=== PATIENT | male | born 1985 | race Caucasian/White ===

== ENCOUNTER 2018-01-07 07:58 | Emergency (ER) | payer OTHER ==
[2018-01-07 08:02] VITALS: BP 130/79; RESP 20; TEMP 98.4
[2018-01-07] MEDS ORDERED: predniSONE 20 MG TAB PO STA (08:15)
[2018-01-07] MEDS ORDERED: ALBUTEROL NEBULIZED 2.5 MG/3 ML INHALATION STA (08:15)
--- NOTE | 2018-01-07 08:23 | ED ---
General Adult HPI - General Chief complaint: ENT Stated complaint: Sore throat Time Seen by Provider: 01/07/18 08:06 Source: patient, RN notes reviewed Mode of arrival: ambulatory Limitations: no limitations - History of Present Illness Initial comments: This is a 32-year-old male present emergency from chief complaint of swelling of his uvula and a cough. Patient states she's been suffering with cough last 3 days. Patient states she is an occasional cigar smoker otherwise does not smoke cigarettes. Patient denies any fever or chills states that he had some troubles ongoing breathing swelling of the swelling. Patient states that has improved since coming emergency from. Patient reports no headache no dizziness denies chest pain, nausea vomiting diarrhea constipation. - Related Data Home Medications Medication Instructions Recorded Confirmed HYDROcodone/APAP 10-325MG [[place] 1 tab PO Q6H PRN 11/25/14 08/02/16 10] Omeprazole [PriLOSEC] 20 mg PO DAILY PRN 12/29/15 08/02/16 Sertraline HCl [Sertraline HCl] 50 mg PO DAILY 12/29/15 08/02/16 Previous Rx's Medication Instructions Recorded amLODIPine [Norvasc] 5 mg PO DAILY #30 tab 02/24/16 Sulfamethox-Tmp 800-160Mg [Bactrim 2 each PO Q12HR #28 tab 08/02/16 Ds] Albuterol Sulfate [Proair Hfa] 1 - 2 puff INHALATION Q4HR PRN #1 01/07/18 inhaler Azithromycin [Zithromax Z-pack] 0 mg PO DIRECTED #1 pack 01/07/18 predniSONE 50 mg PO DAILY #4 tab 01/07/18 Allergies Allergy/AdvReac Type Severity Reaction Status Date / Time amoxicillin Allergy Unknown Verified 01/07/18 08:02 Childhood Review of Systems ROS Statement: Those systems with pertinent positive or pertinent negative responses have been documented in the HPI. ROS Other: All systems not noted in ROS Statement are negative. Past Medical History Past Medical History: Hypertension Additional Past Medical History / Comment(s): Irregular Heart beat History of Any Multi-Drug Resistant Organisms: None Reported Past Surgical History: Orthopedic Surgery Additional Past Surgical History / Comment(s): knee x4 Past Anesthesia/Blood Transfusion Reactions: No Reported Reaction Past Psychological History: Anxiety Smoking Status: Current some day smoker Past Alcohol Use History: Daily Past Drug Use History: Marijuana - Past Family History Mother Family Medical History: No Reported History General Exam Limitations: no limitations General appearance: alert, in no apparent distress Head exam: Present: atraumatic, normocephalic, normal inspection Eye exam: Present: normal appearance, PERRL, EOMI. Absent: scleral icterus, conjunctival injection, periorbital swelling ENT exam: Present: mucous membranes moist, TM's normal bilaterally, normal external ear exam. Absent: normal oropharynx (Swelling of his uvula is noted, mild erythema) Neck exam: Present: normal inspection, full ROM. Absent: tenderness, meningismus, lymphadenopathy Respiratory exam: Present: wheezes. Absent: normal lung sounds bilaterally, respiratory distress, rales, rhonchi, stridor Cardiovascular Exam: Present: regular rate, normal rhythm, normal heart sounds. Absent: systolic murmur, diastolic murmur, rubs, gallop, clicks Course Vital Signs 01/07/18 01/07/18 01/07/18 08:00 08:35 08:44 Temperature 98.4 F Pulse Rate 90 100 92 Respiratory 20 Rate Blood Pressure 130/79 O2 Sat by Pulse 98 Oximetry Medical Decision Making - Medical Decision Making This a 32-year-old male presents emergency Department with chief complaint swelling of his uvula. Patient has uvulitis. Patient will be started on antibiotics, steroids. Patient also had some bronchospasms chest x-ray was clear patient will be given pro-air inhaler. Return parameters were discussed. Disposition Clinical Impression: Uvulitis, Acute bronchospasm Disposition: HOME SELF-CARE Condition: Stable Instructions: Uvulitis (ED) Additional Instructions: Please return to the Emergency Department if symptoms worsen or any other concerns. Prescriptions: Albuterol Sulfate [Proair Hfa] 1 - 2 puff INHALATION Q4HR PRN #1 inhaler PRN Reason: difficulty in breathing Azithromycin [Zithromax Z-pack] 0 mg PO DIRECTED #1 pack predniSONE 50 mg PO DAILY #4 tab Is patient prescribed a controlled substance at d/c from ED?: No Referrals: Twila Orourke III, MD [Primary Care Provider] - 1-2 days Time of Disposition: 08:47
--- NOTE | 2018-01-07 08:35 | XR ---
EXAMINATION TYPE: XR chest 2V DATE OF EXAM: 01/07/2018 COMPARISON: Chest x-ray February 23, 2016 HISTORY: Chest pain today. TECHNIQUE: Frontal and lateral views of the chest are obtained. FINDINGS: There is no focal air space opacity, pleural effusion, or pneumothorax seen. The cardiac silhouette size is within normal limits. The osseous structures are intact. IMPRESSION: No acute process identified currently. No significant change from prior.
[2018-01-07 08:44] VITALS: PULSE 92
== END 2018-01-07 08:40 | disposition home or self-care (01) ==
LOC: EC 07:58
DX: J98.01 Acute bronchospasm (principal); K12.2 Cellulitis and abscess of mouth; F41.9 Anxiety disorder, unspecified; F17.210 Nicotine dependence, cigarettes, uncomplicated; Z79.899 Other long term (current) drug therapy; Z88.0 Allergy status to penicillin
CPT/HCPCS: 94640; 71046; 99283; J7512

== ENCOUNTER 2018-03-31 07:07 | Emergency (ER) | payer OTHER ==
[2018-03-31] MEDS ORDERED: SODIUM CHLORIDE 0.9% 500 ML IV STA (07:33)
[2018-03-31] MEDS ORDERED: MORPHINE SULFATE 2 MG/ML SYRINGE IVP STA (07:34)
--- NOTE | 2018-03-31 07:46 | ED ---
General Adult HPI - General Chief complaint: Neck Pain/Injury Stated complaint: Neck Pain Time Seen by Provider: 03/31/18 07:23 Source: patient, RN notes reviewed Mode of arrival: ambulatory Limitations: no limitations - History of Present Illness Initial comments: Patient is a pleasant 32-year-old male presenting to the emergency department with neck pain and throat discomfort. Patient states neck pain started 3 days ago and has progressively worsened. Patient states neck discomfort is much worse today. 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 No history of chronic neck problems. Neck discomfort increases movement [id number] and up and down. Patient denies any fevers despite being asked multiple times. Patient has noticed a couple of small bumps in the left posterior neck. These are nonpainful. Patient noticed this morning that his uvula felt swollen. Patient did have similar symptoms approximately 3 months ago when he was seen in the emergency department and treated with antibiotics and steroids which resolved his symptoms. - Related Data Home Medications Medication Instructions Recorded Confirmed HYDROcodone/APAP 10-325MG [[place] 1 tab PO Q6H PRN 11/25/14 08/02/16 10] Omeprazole [PriLOSEC] 20 mg PO DAILY PRN 12/29/15 08/02/16 Sertraline HCl 50 mg PO DAILY 12/29/15 08/02/16 Previous Rx's Medication Instructions Recorded amLODIPine [Norvasc] 5 mg PO DAILY #30 tab 02/24/16 Sulfamethox-Tmp 800-160Mg [Bactrim 2 each PO Q12HR #28 tab 08/02/16 Ds] Albuterol Sulfate [Proair Hfa] 1 - 2 puff INHALATION Q4HR PRN #1 01/07/18 inhaler Azithromycin [Zithromax Z-pack] 0 mg PO DIRECTED #1 pack 01/07/18 predniSONE 50 mg PO DAILY #4 tab 01/07/18 Azithromycin [Zithromax Z-pack] 250 mg PO DIRECTED #6 tab 03/31/18 Cyclobenzaprine [Flexeril] 10 mg PO TID PRN #12 tablet 03/31/18 Ibuprofen [Motrin] 600 mg PO Q6HR PRN #20 tab 03/31/18 predniSONE 20 mg PO BID #10 tab 03/31/18 Allergies Allergy/AdvReac Type Severity Reaction Status Date / Time amoxicillin Allergy Unknown Verified 03/31/18 07:15 Childhood Review of Systems ROS Statement: Those systems with pertinent positive or pertinent negative responses have been documented in the HPI. ROS Other: All systems not noted in ROS Statement are negative. Constitutional: Denies: fever, chills Eyes: Denies: eye pain ENT: Reports: throat pain. Denies: ear pain Respiratory: Denies: cough Cardiovascular: Denies: chest pain Endocrine: Denies: fatigue Gastrointestinal: Denies: abdominal pain Genitourinary: Denies: dysuria Musculoskeletal: Denies: back pain Skin: Denies: rash Neurological: Denies: weakness Past Medical History Past Medical History: Hypertension Additional Past Medical History / Comment(s): Irregular Heart beat History of Any Multi-Drug Resistant Organisms: None Reported Past Surgical History: Orthopedic Surgery Additional Past Surgical History / Comment(s): knee x4 Past Anesthesia/Blood Transfusion Reactions: No Reported Reaction Past Psychological History: Anxiety Smoking Status: Current some day smoker Past Alcohol Use History: Daily Past Drug Use History: None Reported - Past Family History Mother Family Medical History: No Reported History General Exam Limitations: no limitations General appearance: alert, in no apparent distress Head exam: Present: atraumatic Eye exam: Present: normal appearance, PERRL ENT exam: Present: other (Swollen uvula with mild erythema) Neck exam: Present: lymphadenopathy (Patient has 2 small left posterior lymph nodes.). Absent: tenderness, full ROM (Pain with range of motion with flexion and extension and turning.) Respiratory exam: Present: normal lung sounds bilaterally Cardiovascular Exam: Present: regular rate, normal rhythm GI/Abdominal exam: Present: soft. Absent: tenderness Extremities exam: Present: normal inspection Neurological exam: Present: alert, CN II-XII intact. Absent: motor sensory deficit Expanded Sensory exam: Upper Extremity Light Touch: Normal Motor strength exam: RUE: 5, LUE: 5 Psychiatric exam: Present: normal affect, normal mood Skin exam: Present: normal color. Absent: rash Course Vital Signs 03/31/18 07:12 Temperature 98.2 F Pulse Rate 80 Respiratory 18 Rate Blood Pressure 121/76 O2 Sat by Pulse 98 Oximetry Medical Decision Making - Medical Decision Making Patient reevaluated and improved following pain medication. Patient is felt to have low risk of meningitis. No fever, nontoxic. No elevation white blood cell count. Patient is made aware of this and feelings that he is low risk. Patient is in agreement. Patient is informed of CT results. Patient will be covered with antibiotics and steroids for uvulitis. Patient is advised for ENT for follow-up regarding this as well as CT results. Patient will be prescribed Motrin and Flexeril for neck discomfort. Neck discomfort is felt to likely be musculoskeletal and possibly related to his work. - Lab Data Result diagrams: 03/31/18 07:58 03/31/18 07:58 Lab Results 03/31/18 03/31/18 03/31/18 Range/Units 07:58 07:58 07:58 WBC 4.3 (3.8-10.6) k/uL RBC 5.12 (4.30-5.90) m/uL Hgb 15.3 (13.0-17.5) gm/dL Hct 46.6 (39.0-53.0) % MCV 91.1 (80.0-100.0) fL MCH 29.9 (25.0-35.0) pg MCHC 32.8 (31.0-37.0) g/dL RDW 13.4 (11.5-15.5) % Plt Count 205 (150-450) k/uL Neutrophils % 56 % Lymphocytes % 32 % Monocytes % 6 % Eosinophils % 3 % Basophils % 1 % Neutrophils # 2.4 (1.3-7.7) k/uL Lymphocytes # 1.4 (1.0-4.8) k/uL Monocytes # 0.3 (0-1.0) k/uL Eosinophils # 0.1 (0-0.7) k/uL Basophils # 0.0 (0-0.2) k/uL PT 10.1 (9.0-12.0) sec INR 1.0 (<1.2) APTT 26.5 (22.0-30.0) sec Sodium 142 (137-145) mmol/L Potassium 4.6 (3.5-5.1) mmol/L Chloride 108 H (98-107) mmol/L Carbon Dioxide 24 (22-30) mmol/L Anion Gap 10 mmol/L BUN 12 (9-20) mg/dL Creatinine 0.74 (0.66-1.25) mg/dL Est GFR (CKD-EPI)AfAm >90 (>60 ml/min/1.73 sqM) Est GFR (CKD-EPI)NonAf >90 (>60 ml/min/1.73 sqM) Glucose 94 (74-99) mg/dL Calcium 9.7 (8.4-10.2) mg/dL Total Bilirubin 0.5 (0.2-1.3) mg/dL AST 23 (17-59) U/L ALT 31 (21-72) U/L Alkaline Phosphatase 43 (38-126) U/L Total Protein 7.0 (6.3-8.2) g/dL Albumin 4.4 (3.5-5.0) g/dL Group A Strep Rapid (Negative) 03/31/18 Range/Units 07:58 WBC (3.8-10.6) k/uL RBC (4.30-5.90) m/uL Hgb (13.0-17.5) gm/dL Hct (39.0-53.0) % MCV (80.0-100.0) fL MCH (25.0-35.0) pg MCHC (31.0-37.0) g/dL RDW (11.5-15.5) % Plt Count (150-450) k/uL Neutrophils % % Lymphocytes % % Monocytes % % Eosinophils % % Basophils % % Neutrophils # (1.3-7.7) k/uL Lymphocytes # (1.0-4.8) k/uL Monocytes # (0-1.0) k/uL Eosinophils # (0-0.7) k/uL Basophils # (0-0.2) k/uL PT (9.0-12.0) sec INR (<1.2) APTT (22.0-30.0) sec Sodium (137-145) mmol/L Potassium (3.5-5.1) mmol/L Chloride (98-107) mmol/L Carbon Dioxide (22-30) mmol/L Anion Gap mmol/L BUN (9-20) mg/dL Creatinine (0.66-1.25) mg/dL Est GFR (CKD-EPI)AfAm (>60 ml/min/1.73 sqM) Est GFR (CKD-EPI)NonAf (>60 ml/min/1.73 sqM) Glucose (74-99) mg/dL Calcium (8.4-10.2) mg/dL Total Bilirubin (0.2-1.3) mg/dL AST (17-59) U/L ALT (21-72) U/L Alkaline Phosphatase (38-126) U/L Total Protein (6.3-8.2) g/dL Albumin (3.5-5.0) g/dL Group A Strep Rapid Negative (Negative) - Radiology Data Radiology results: report reviewed (Computed tomography scan of the neck shows some effacement of the piriform sinus.) Disposition Clinical Impression: Uvulitis, Neck pain Disposition: HOME SELF-CARE Condition: Stable Instructions: Cervical Strain (ED), Neck Pain (ED), Uvulitis (ED) Additional Instructions: Please follow-up with primary care physician and ENT in the next day or 2 for recheck. Please have both physicians review CT results. Return for fevers, increased illness, increased neck pain, difficulty breathing, difficulty swallowing, worsening symptoms or any other concern. Prescriptions: Azithromycin [Zithromax Z-pack] 250 mg PO DIRECTED #6 tab Cyclobenzaprine [Flexeril] 10 mg PO TID PRN #12 tablet PRN Reason: Pain Ibuprofen [Motrin] 600 mg PO Q6HR PRN #20 tab PRN Reason: Pain predniSONE 20 mg PO BID #10 tab Is patient prescribed a controlled substance at d/c from ED?: No Referrals: Twila Orourke III, MD [Primary Care Provider] - 1-2 days Lauro Guthrie MD [STAFF PHYSICIAN] - 1-2 days Time of Disposition: 09:29
[2018-03-31 08:25] LABS: Basophils % (A) 1 %; Eosinophils # (A) 0.1 k/uL (0-0.7); Eosinophils % (A) 3 %; HCT 46.6 % (39.0-53.0); HGB 15.3 gm/dL (13.0-17.5); Lymphocytes # (A) 1.4 k/uL (1.0-4.8); Lymphocytes % (A) 32 %; MCH 29.9 pg (25.0-35.0); MCHC 32.8 g/dL (31.0-37.0); MCV 91.1 fL (80.0-100.0); Mean Platelet Volume 7.8; Monocytes # (A) 0.3 k/uL (0-1.0); Monocytes % (A) 6 %; Neutrophils # (A) 2.4 k/uL (1.3-7.7); Neutrophils % (A) 56 %; Platelet Count 205 k/uL (150-450); RBC 5.12 m/uL (4.30-5.90); RDW 13.4 % (11.5-15.5); WBC 4.3 k/uL (3.8-10.6)
[2018-03-31 08:38] LABS: Partial Thromboplastin Time 26.5 sec (22.0-30.0); Prothrombin Time 10.1 sec (9.0-12.0)
[2018-03-31 08:44] LABS: ALT 31 U/L (21-72); AST 23 U/L (17-59); Albumin 4.4 g/dL (3.5-5.0); Alkaline Phosphatase 43 U/L (38-126); Anion Gap 10 mmol/L; Blood Urea Nitrogen 12 mg/dL (9-20); Calcium 9.7 mg/dL (8.4-10.2); Carbon Dioxide 24 mmol/L (22-30); Chloride 108 mmol/L (98-107); Glucose 94 mg/dL (74-99); Potassium 4.6 mmol/L (3.5-5.1); Sodium 142 mmol/L (137-145); Total Bilirubin 0.5 mg/dL (0.2-1.3)
--- NOTE | 2018-03-31 08:59 | CT ---
EXAMINATION TYPE: CT soft tissue neck w con DATE OF EXAM: 03/31/2018 8:30 AM COMPARISON: None. HISTORY: neck pain CT DLP: 416.3 mGycm Automated exposure control for dose reduction was used. CONTRAST: CT scan of the neck is performed following with IV Contrast, patient injected with 100mL mL of Isovue 300. Axial images are obtained, coronal and sagittal reformatted images are reviewed. FINDINGS: There are emphysematous changes within the lungs. Visualized intracranial structures are unremarkable. Major salivary glands are normal. The parapharyngeal, oropharyngeal and laryngeal soft tissues appear normal. There is some effacement of the right piriform sinus. The epiglottis is normal. The thyroid gland enhances homogeneously. There is some shotty submental and posterior reticular adenopathy. No pathologically enlarged lymph n odes are seen. Vertebral body height and alignment are maintained. Atlantoaxial relationships are normal. There is n o significant degenerative change. No definite protrusion is seen. No bony destructive lesion is seen. IMPRESSION: 1. EFFACEMENT OF THE RIGHT PIRIFORM SINUS. DIRECT VISUALIZATION WOULD BE SUGGESTED. 2. EMPHYSEMATOUS CHANGE.
[2018-03-31 09:41] VITALS: BP 110/68; PULSE 51; RESP 16; TEMP 98.1
== END 2018-03-31 09:49 | disposition home or self-care (01) ==
LOC: EC 07:07
DX: K12.2 Cellulitis and abscess of mouth (principal); M54.2 Cervicalgia; F41.9 Anxiety disorder, unspecified; F17.200 Nicotine dependence, unspecified, uncomplicated; Z79.899 Other long term (current) drug therapy; Z88.0 Allergy status to penicillin
CPT/HCPCS: 99284; 96374; 36415; 80053; 85025; 85610; 85730; 87081; 87430; 70491; J2270

== ENCOUNTER 2018-06-28 12:11 | Emergency (ER) | payer OTHER ==
[2018-06-28 12:15] VITALS: BP 143/89; PULSE 92; RESP 18; TEMP 98
--- NOTE | 2018-06-28 12:39 | ED ---
Abdominal Pain HPI - General Chief Complaint: Abdominal Pain Stated Complaint: ABDOMINAL PAIN Time Seen by Provider: 06/28/18 12:24 Source: patient, RN notes reviewed, old records reviewed Mode of arrival: ambulatory Limitations: no limitations - History of Present Illness Initial Comments: This is a 32-year-old male the ER for evaluation. He presents today for evaluation of mild abdominal pain and dysuria, frequent of urination, foam in his urine. MD Complaint: abdominal pain -: days(s) Location: suprapubic Radiation: suprapubic Severity: mild Severity scale (1-10): 3 Quality: aching Consistency: constant Improves With: nothing Worsens With: nothing Associated Symptoms: denies other symptoms - Related Data Home Medications Medication Instructions Recorded Confirmed HYDROcodone/APAP 10-325MG [[place] 1 tab PO Q6H PRN 11/25/14 08/02/16 10] Omeprazole [PriLOSEC] 20 mg PO DAILY PRN 12/29/15 08/02/16 Sertraline HCl 50 mg PO DAILY 12/29/15 08/02/16 Previous Rx's Medication Instructions Recorded amLODIPine [Norvasc] 5 mg PO DAILY #30 tab 02/24/16 Sulfamethox-Tmp 800-160Mg [Bactrim 2 each PO Q12HR #28 tab 08/02/16 Ds] Albuterol Sulfate [Proair Hfa] 1 - 2 puff INHALATION Q4HR PRN #1 01/07/18 inhaler Azithromycin [Zithromax Z-pack] 0 mg PO DIRECTED #1 pack 01/07/18 predniSONE 50 mg PO DAILY #4 tab 01/07/18 Azithromycin [Zithromax Z-pack] 250 mg PO DIRECTED #6 tab 03/31/18 Cyclobenzaprine [Flexeril] 10 mg PO TID PRN #12 tablet 03/31/18 Ibuprofen [Motrin] 600 mg PO Q6HR PRN #20 tab 03/31/18 predniSONE 20 mg PO BID #10 tab 03/31/18 Allergies Allergy/AdvReac Type Severity Reaction Status Date / Time amoxicillin Allergy Unknown Verified 06/28/18 13:34 Childhood Review of Systems ROS Statement: Those systems with pertinent positive or pertinent negative responses have been documented in the HPI. ROS Other: All systems not noted in ROS Statement are negative. Past Medical History Past Medical History: Hypertension Additional Past Medical History / Comment(s): Irregular Heart beat History of Any Multi-Drug Resistant Organisms: None Reported Past Surgical History: Orthopedic Surgery Additional Past Surgical History / Comment(s): knee x4 Past Anesthesia/Blood Transfusion Reactions: No Reported Reaction Past Psychological History: Anxiety Smoking Status: Current some day smoker Past Alcohol Use History: Daily Past Drug Use History: None Reported - Past Family History Mother Family Medical History: No Reported History General Exam Limitations: no limitations General appearance: alert, in no apparent distress Head exam: Present: atraumatic, normocephalic, normal inspection Eye exam: Present: normal appearance, PERRL, EOMI. Absent: scleral icterus, conjunctival injection, periorbital swelling ENT exam: Present: normal exam, mucous membranes moist Neck exam: Present: normal inspection. Absent: tenderness, meningismus, lymphadenopathy Respiratory exam: Present: normal lung sounds bilaterally. Absent: respiratory distress, wheezes, rales, rhonchi, stridor Cardiovascular Exam: Present: regular rate, normal rhythm, normal heart sounds. Absent: systolic murmur, diastolic murmur, rubs, gallop, clicks GI/Abdominal exam: Present: soft, normal bowel sounds. Absent: distended, tenderness, guarding, rebound, rigid Extremities exam: Present: normal inspection, full ROM, normal capillary refill. Absent: tenderness, pedal edema, joint swelling, calf tenderness Back exam: Present: normal inspection Neurological exam: Present: alert, oriented X3, CN II-XII intact Psychiatric exam: Present: normal affect, normal mood Skin exam: Present: warm, dry, intact, normal color. Absent: rash Course Vital Signs 06/28/18 12:11 Temperature 98 F Pulse Rate 92 Respiratory 18 Rate Blood Pressure 143/89 O2 Sat by Pulse 100 Oximetry - Reevaluation(s) Reevaluation #1: 06/28/18 13:39 Medical record is reviewed Medical Decision Making - Medical Decision Making 32 male the ER for evasive dysuria, positive urethritis, will place on antibiotics and discharged home - Lab Data Lab Results 06/28/18 Range/Units 12:30 Urine Color Yellow Urine Appearance Clear (Clear) Urine pH 6.5 (5.0-8.0) Ur Specific [place] 1.013 (1.001-1.035) Urine Protein 3+ H (Negative) Urine Glucose (UA) Negative (Negative) Urine Ketones Negative (Negative) Urine Blood Trace H (Negative) Urine Nitrite Negative (Negative) Urine Bilirubin Negative (Negative) Urine Urobilinogen <2.0 (<2.0) mg/dL Ur Leukocyte Esterase Negative (Negative) Urine RBC 1 (0-5) /hpf Urine WBC <1 (0-5) /hpf Granular Casts 6 (0) /lpf Urine Mucus Rare H (None) /hpf Disposition Clinical Impression: Urethritis Disposition: HOME SELF-CARE Condition: Good Instructions: Nonspecific Urethritis in Men (ED) Is patient prescribed a controlled substance at d/c from ED?: No Referrals: Twila Orourke III, MD [Primary Care Provider] - 1-2 days
[2018-06-28 13:09] LABS: Appearance,Urine Clear (Clear); Bilirubin,Urine Negative (Negative); Blood,Urine Trace (Negative); Color,Urine Yellow; Glucose,Urine (UA) Negative (Negative); Granular Casts,Urine 6 /lpf (0); Ketones,Urine Negative (Negative); Leukocyte Esterase,Urine Negative (Negative); Mucus,Urine Rare /hpf; Nitrite,Urine Negative (Negative); PH, Urine 6.5 (5.0-8.0); Protein,Urine 3+ (Negative); RBC,Urine 1 /hpf (0-5); Specific Gravity,Urine 1.013 (1.001-1.035); Urobilinogen,Urine <2.0 mg/dL (<2.0); WBC,Urine <1 /hpf (0-5)
[2018-06-28] MEDS ORDERED: AZITHROMYCIN 500 MG TAB PO STA (13:40)
[2018-06-28] MEDS ORDERED: cefTRIAXone 250 MG VIAL IM STA (13:40)
== END 2018-06-28 14:17 | disposition home or self-care (01) ==
LOC: EC 12:11
DX: N34.2 Other urethritis (principal); F41.9 Anxiety disorder, unspecified; F17.200 Nicotine dependence, unspecified, uncomplicated; Z98.890 Other specified postprocedural states; Z79.899 Other long term (current) drug therapy; Z88.0 Allergy status to penicillin
CPT/HCPCS: 81001; 87491; 87591; 87086; 99284; 96372; J0696

== ENCOUNTER 2018-06-28 17:14 | Emergency (ER) | payer OTHER ==
[2018-06-28 17:18] VITALS: TEMP 98.1
[2018-06-28] MEDS ORDERED: SODIUM CHLORIDE 0.9% 1,000 ML IV STA ×2 (17:45)
[2018-06-28] MEDS ORDERED: PANTOPRAZOLE 40 MG/10 ML VIAL IVP STA (17:45)
[2018-06-28] MEDS ORDERED: ONDANSETRON 4 MG/2 ML VIAL IVP STA (17:45)
[2018-06-28] MEDS ORDERED: KETOROLAC 30 MG/ML 1 ML VIAL IVP STA (17:47)
--- NOTE | 2018-06-28 17:47 | ED ---
GI Bleed HPI - General Chief complaint: GI Bleed Stated complaint: vomiting blood Time Seen by Provider: 06/28/18 17:32 Source: patient, RN notes reviewed, old records reviewed Mode of arrival: ambulatory Limitations: no limitations - History of Present Illness Initial comments: 32-year-old male presents emergency department today with chief complaint of foam urine. Patient has been having this for the past 2 weeks. Complains of pain with urination and pain in his bladder. He reports he is a heavy drinker. He was evaluated earlier today diagnosed with urinary tract infection and treated for STDs. Patient relates he does not have any STDs and he reports he is a monogamous relationship with his . Patient states that he's had no fevers or chills. He did have some vomiting episodes after was initially discharged today reports that he was vomited up blood. - Related Data Home Medications Medication Instructions Recorded Confirmed HYDROcodone/APAP 10-325MG [[place] 1 tab PO Q6H PRN 11/25/14 06/28/18 10] Omeprazole [PriLOSEC] 20 mg PO DAILY PRN 06/28/18 06/28/18 Previous Rx's Medication Instructions Recorded amLODIPine [Norvasc] 5 mg PO DAILY #30 tab 02/24/16 Omeprazole [PriLOSEC] 40 mg PO DAILY #20 capsule. 06/28/18 Ondansetron Odt [Zofran Odt] 4 mg PO Q8HR PRN #12 tab 06/28/18 chlordiazePOXIDE HCl [Librium] 25 mg PO DIRECTED 3 Days #10 06/28/18 capsule Allergies Allergy/AdvReac Type Severity Reaction Status Date / Time amoxicillin Allergy Unknown Verified 06/28/18 17:31 Childhood Review of Systems ROS Statement: Those systems with pertinent positive or pertinent negative responses have been documented in the HPI. ROS Other: All systems not noted in ROS Statement are negative. Past Medical History Past Medical History: Hypertension Additional Past Medical History / Comment(s): Irregular Heart beat History of Any Multi-Drug Resistant Organisms: None Reported Past Surgical History: Orthopedic Surgery Additional Past Surgical History / Comment(s): knee x4 Past Anesthesia/Blood Transfusion Reactions: No Reported Reaction Past Psychological History: Anxiety Smoking Status: Current some day smoker Past Alcohol Use History: Daily Past Drug Use History: None Reported - Past Family History Mother Family Medical History: No Reported History General Exam - General Exam Comments Initial Comments: 32-year-old male. Alert and oriented. Patient appears in no significant distress. Limitations: no limitations General appearance: alert, in no apparent distress Head exam: Present: atraumatic Eye exam: Present: normal appearance, PERRL, EOMI. Absent: scleral icterus, conjunctival injection, periorbital swelling ENT exam: Present: normal exam Neck exam: Present: normal inspection Respiratory exam: Present: normal lung sounds bilaterally. Absent: respiratory distress, wheezes, rales, rhonchi, stridor Cardiovascular Exam: Present: regular rate, normal rhythm, normal heart sounds. Absent: systolic murmur, diastolic murmur, rubs, gallop, clicks GI/Abdominal exam: Present: soft, normal bowel sounds. Absent: distended, tenderness, guarding, rebound, rigid Extremities exam: Present: normal inspection, full ROM, normal capillary refill. Absent: tenderness, pedal edema, joint swelling, calf tenderness Back exam: Present: normal inspection. Absent: tenderness Neurological exam: Present: alert, oriented X3, CN II-XII intact Psychiatric exam: Present: normal affect, normal mood Skin exam: Present: warm, dry, intact, normal color. Absent: rash Course Vital Signs 06/28/18 06/28/18 06/28/18 17:15 19:46 20:58 Temperature 98.1 F Pulse Rate 89 90 88 Respiratory 18 16 16 Rate Blood Pressure 146/90 119/90 130/81 O2 Sat by Pulse 100 97 97 Oximetry Medical Decision Making - Medical Decision Making 32-year-old male presents emergency department today with chief complaint of foam urine. Patient has been having this for the past 2 weeks. Complains of pain with urination and pain in his bladder. He reports he is a heavy drinker. He was evaluated earlier today diagnosed with urinary tract infection and treated for STDs. Patient relates he does not have any STDs and he reports he is a monogamous relationship with his . Patient states that he's had no fevers or chills. He did have some vomiting episodes after was initially discharged today reports that he was vomited up blood. Patient was started on IV fluids and labs obtained. He later reports a history of significant ETOH abuse. Patient at this time continues to have protein uria. No signs of infection. Patient labs incluidng kidney function is presevered. He reports he vomitited blood, and reports history of ETOH gastritis. Given protonix. discussed that patient needs to follow [facility] uronology and PCP. discussed return parameters. - Lab Data Result diagrams: 06/28/18 18:15 06/28/18 18:15 Lab Results 06/28/18 06/28/18 06/28/18 Range/Units 18:15 18:15 18:15 WBC 6.8 (3.8-10.6) k/uL RBC 5.40 (4.30-5.90) m/uL Hgb 16.2 (13.0-17.5) gm/dL Hct 47.1 (39.0-53.0) % MCV 87.2 (80.0-100.0) fL MCH 30.1 (25.0-35.0) pg MCHC 34.5 (31.0-37.0) g/dL RDW 13.7 (11.5-15.5) % Plt Count 196 (150-450) k/uL Neutrophils % 82 % Lymphocytes % 11 % Monocytes % 6 % Eosinophils % 0 % Basophils % 0 % Neutrophils # 5.5 (1.3-7.7) k/uL Lymphocytes # 0.8 L (1.0-4.8) k/uL Monocytes # 0.4 (0-1.0) k/uL Eosinophils # 0.0 (0-0.7) k/uL Basophils # 0.0 (0-0.2) k/uL PT 9.8 (9.0-12.0) sec INR 1.0 (<1.2) APTT 25.3 (22.0-30.0) sec Sodium 140 (137-145) mmol/L Potassium 4.2 (3.5-5.1) mmol/L Chloride 97 L (98-107) mmol/L Carbon Dioxide 25 (22-30) mmol/L Anion Gap 18 mmol/L BUN 11 (9-20) mg/dL Creatinine 0.73 (0.66-1.25) mg/dL Est GFR (CKD-EPI)AfAm >90 (>60 ml/min/1.73 sqM) Est GFR (CKD-EPI)NonAf >90 (>60 ml/min/1.73 sqM) Glucose 116 H (74-99) mg/dL Calcium 10.0 (8.4-10.2) mg/dL Total Bilirubin 0.5 (0.2-1.3) mg/dL AST 38 (17-59) U/L ALT 23 (21-72) U/L Alkaline Phosphatase 67 (38-126) U/L Total Protein 8.3 H (6.3-8.2) g/dL Albumin 5.2 H (3.5-5.0) g/dL Amylase 64 (30-110) U/L Lipase 220 (23-300) U/L Urine Color Urine Appearance (Clear) Urine pH (5.0-8.0) Ur Specific [place] (1.001-1.035) Urine Protein (Negative) Urine Glucose (UA) (Negative) Urine Ketones (Negative) Urine Blood (Negative) Urine Nitrite (Negative) Urine Bilirubin (Negative) Urine Urobilinogen (<2.0) mg/dL Ur Leukocyte Esterase (Negative) Urine RBC (0-5) /hpf Urine WBC (0-5) /hpf Hyaline Casts (0-2) /lpf Urine Mucus (None) /hpf 06/28/18 Range/Units 19:10 WBC (3.8-10.6) k/uL RBC (4.30-5.90) m/uL Hgb (13.0-17.5) gm/dL Hct (39.0-53.0) % MCV (80.0-100.0) fL MCH (25.0-35.0) pg MCHC (31.0-37.0) g/dL RDW (11.5-15.5) % Plt Count (150-450) k/uL Neutrophils % % Lymphocytes % % Monocytes % % Eosinophils % % Basophils % % Neutrophils # (1.3-7.7) k/uL Lymphocytes # (1.0-4.8) k/uL Monocytes # (0-1.0) k/uL Eosinophils # (0-0.7) k/uL Basophils # (0-0.2) k/uL PT (9.0-12.0) sec INR (<1.2) APTT (22.0-30.0) sec Sodium (137-145) mmol/L Potassium (3.5-5.1) mmol/L Chloride (98-107) mmol/L Carbon Dioxide (22-30) mmol/L Anion Gap mmol/L BUN (9-20) mg/dL Creatinine (0.66-1.25) mg/dL Est GFR (CKD-EPI)AfAm (>60 ml/min/1.73 sqM) Est GFR (CKD-EPI)NonAf (>60 ml/min/1.73 sqM) Glucose (74-99) mg/dL Calcium (8.4-10.2) mg/dL Total Bilirubin (0.2-1.3) mg/dL AST (17-59) U/L ALT (21-72) U/L Alkaline Phosphatase (38-126) U/L Total Protein (6.3-8.2) g/dL Albumin (3.5-5.0) g/dL Amylase (30-110) U/L Lipase (23-300) U/L Urine Color Yellow Urine Appearance Clear (Clear) Urine pH 6.5 (5.0-8.0) Ur Specific [place]comb 1.008 (1.001-1.035) Urine Protein 3+ H (Negative) Urine Glucose (UA) Negative (Negative) Urine Ketones Negative (Negative) Urine Blood Small H (Negative) Urine Nitrite Negative (Negative) Urine Bilirubin Negative (Negative) Urine Urobilinogen <2.0 (<2.0) mg/dL Ur Leukocyte Esterase Negative (Negative) Urine RBC <1 (0-5) /hpf Urine WBC <1 (0-5) /hpf Hyaline Casts 6 H (0-2) /lpf Urine Mucus Rare H (None) /hpf - Radiology Data Radiology results: report reviewed Negative CT abdomen and pelvis. Disposition Clinical Impression: Proteinuria, Alcohol abuse, Abdominal pain Disposition: HOME SELF-CARE Condition: Good Instructions: Hematuria (ED), Abdominal Pain (ED) Additional Instructions: Patient is to continue the antibiotic is perviously prescribed. If you discontinuing drinking use the Librium taper pack as directed. Follow-up with your primary care physician and urology. Prescriptions: chlordiazePOXIDE HCl [Librium] 25 mg PO DIRECTED 3 Days #10 capsule Omeprazole [PriLOSEC] 40 mg PO DAILY #20 capsule. Ondansetron Odt [Zofran Odt] 4 mg PO Q8HR PRN #12 tab PRN Reason: Pain Is patient prescribed a controlled substance at d/c from ED?: No Referrals: Twila Orourke III, MD [Primary Care Provider] - 1-2 days Harvey Clark MD [STAFF PHYSICIAN] - 1-2 days Time of Disposition: 20:47
[2018-06-28 18:33] LABS: Basophils % (A) 0 %; Eosinophils % (A) 0 %; HCT 47.1 % (39.0-53.0); HGB 16.2 gm/dL (13.0-17.5); Lymphocytes # (A) 0.8 k/uL (1.0-4.8); Lymphocytes % (A) 11 %; MCH 30.1 pg (25.0-35.0); MCHC 34.5 g/dL (31.0-37.0); MCV 87.2 fL (80.0-100.0); Mean Platelet Volume 6.8; Monocytes # (A) 0.4 k/uL (0-1.0); Monocytes % (A) 6 %; Neutrophils # (A) 5.5 k/uL (1.3-7.7); Neutrophils % (A) 82 %; Platelet Count 196 k/uL (150-450); RDW 13.7 % (11.5-15.5); WBC 6.8 k/uL (3.8-10.6)
[2018-06-28 18:36] LABS: Partial Thromboplastin Time 25.3 sec (22.0-30.0); Prothrombin Time 9.8 sec (9.0-12.0)
[2018-06-28 18:56] LABS: ALT 23 U/L (21-72); AST 38 U/L (17-59); Albumin 5.2 g/dL (3.5-5.0); Alkaline Phosphatase 67 U/L (38-126); Amylase 64 U/L (30-110); Anion Gap 18 mmol/L; Blood Urea Nitrogen 11 mg/dL (9-20); Carbon Dioxide 25 mmol/L (22-30); Chloride 97 mmol/L (98-107); Glucose 116 mg/dL (74-99); Lipase 220 U/L (23-300); Potassium 4.2 mmol/L (3.5-5.1); Sodium 140 mmol/L (137-145); Total Bilirubin 0.5 mg/dL (0.2-1.3); Total Protein 8.3 g/dL (6.3-8.2)
[2018-06-28 19:21] LABS: Appearance,Urine Clear (Clear); Bilirubin,Urine Negative (Negative); Blood,Urine Small (Negative); Color,Urine Yellow; Glucose,Urine (UA) Negative (Negative); Hyaline Casts,Urine 6 /lpf (0-2); Ketones,Urine Negative (Negative); Leukocyte Esterase,Urine Negative (Negative); Mucus,Urine Rare /hpf; Nitrite,Urine Negative (Negative); PH, Urine 6.5 (5.0-8.0); Protein,Urine 3+ (Negative); RBC,Urine <1 /hpf (0-5); Specific Gravity,Urine 1.008 (1.001-1.035); Urobilinogen,Urine <2.0 mg/dL (<2.0); WBC,Urine <1 /hpf (0-5)
--- NOTE | 2018-06-28 19:46 | CT ---
EXAMINATION TYPE: CT abdomen pelvis wo con DATE OF EXAM: 06/28/2018 COMPARISON: None HISTORY: vomiting blood, recent broken rib on left side CT DLP: 507 mGycm Automated exposure control for dose reduction was used. TECHNIQUE: Helical acquisition of images was performed from the lung bases through the pelvis. FINDINGS: Lung bases are clear. There is no pleural effusion. Heart size is normal. There is no pericardial eff usion. Stomach has normal size and contour. There is 1 cm rounded density in the posterior stomach that coul d be ingested calcium pill. Spleen appears normal. Liver shows no focal defect. Bile ducts are not di lated. There is no evidence of a pancreatic mass. There is no adrenal mass. Kidneys have normal size and contour. There is no hydronephrosis. There is no definite renal calculus. Ureters are not dilated. There is no retroperitoneal adenopathy. Bladder distends smoothly. There is no free fluid in the pelvis. There is no inguinal hernia. There is no evidence of free air. I see no intestinal wall thickening. There are no dilated loops. Th ere is no mesenteric edema. There are a few pericecal lymph nodes that measure up to 1 cm. Appendix a ppears normal. The bony pelvis is intact. Lumbar vertebra appear intact. There is no lumbar paraspinal mass. IMPRESSION: NEGATIVE CT SCAN OF THE ABDOMEN AND PELVIS. NO EVIDENCE OF TRAUMATIC INJURY.
[2018-06-28 19:47] VITALS: RESP 16
[2018-06-28 21:00] VITALS: BP 130/81; PULSE 88
== END 2018-06-28 21:02 | disposition home or self-care (01) ==
LOC: EC 17:14
DX: F10.10 Alcohol abuse, uncomplicated (principal); R80.9 Proteinuria, unspecified; R10.9 Unspecified abdominal pain; K92.0 Hematemesis; N39.0 Urinary tract infection, site not specified; F17.200 Nicotine dependence, unspecified, uncomplicated; Z88.0 Allergy status to penicillin
CPT/HCPCS: 99285; 96374; 96375 ×2; 96361 ×3; 36415; 80053; 82150; 83690; 85025; 85610; 85730; 81001; 74176; J2405; J1885; C9113

== ENCOUNTER → 2020-02-05 | Outpatient (CLI) | payer OTHER ==
--- NOTE | 2020-02-05 07:45 | US ---
EXAMINATION TYPE: US abdomen complete DATE OF EXAM: 02/05/2020 COMPARISON: CT 06/28/2018 CLINICAL HISTORY: R10.11 Right upper quadrant pain. EXAM MEASUREMENTS: Liver Length: 16.5 cm Gallbladder Wall: 0.2 cm CBD: 0.7 cm Spleen: 14.0 cm Right Kidney: 11.6 x 4.7 x 5.4 cm Left Kidney: 11.0 x 5.6 x 6.4 cm Pancreas: Tail obscured by overlying bowel gas, visualized portions appear wnl Liver: wnl Gallbladder: wnl Evidence for sonographic Ram's sign: No CBD: Enlarged Spleen: Enlarged Right Kidney: No hydronephrosis or masses seen Left Kidney: No hydronephrosis or masses seen Upper IVC: wnl Abd Aorta: wnl The liver is homogenous. The intrahepatic portion of the IVC and proximal abdominal aorta are within normal limits. There is no evidence of cholelithiasis. The visualized portions of the pancreas are homogenous. The spleen is unremarkable. Kidneys are symmetric and free of hydronephrosis. No mary l lesions are seen. IMPRESSION: 1. Splenomegaly. 2. Prominence of the common bile duct of uncertain etiology.
== END | disposition home or self-care (01) ==
LOC: RADUSWWP 07:08
PROVIDERS: ATTEND Family Medicine
DX: R16.1 Splenomegaly, not elsewhere classified (principal)
CPT/HCPCS: 76700

== ENCOUNTER 2022-01-23 19:41 | Observation (INO) | payer BC ==
[2022-01-23 20:02] VITALS: TEMP 98.7
[2022-01-23] MEDS ORDERED: SODIUM CHLORIDE 0.9% 1,000 ML IV STA (20:06)
--- NOTE | 2022-01-23 20:19 | ED ---
General Adult HPI - General Chief complaint: Recheck/Abnormal Lab/Rx Stated complaint: High Blood Pressure, Shaking, Chest tightness Time Seen by Provider: 01/23/22 20:05 Source: patient Mode of arrival: ambulatory Limitations: no limitations - History of Present Illness Initial comments: This is a pleasant 36-year-old male with history of alcoholism. Patient states she has not drank alcohol in 3 years however, he presents to the ER today c omplaining of generalized tremors and "wobbly vision "and a mild headache which resolved. Patient states he was not feeling well for a few days. Patient states he thought he had some mild shakiness. He states everything got worse a few hours ago. Patient states she's been under a great deal stress Lexyradha [place]ot his significant other is . Patient states he had 2 tile family members today which was stressful. Patient has a history of anxiety attacks which was similar but not quite as bad as this one. Patient denies any chest pain but did have some palpitations. No current headache, no fever or chills, no changes in hearing, no sore throat or difficulty with speech, no neck pain, no chest pain or shortness of breath, no abdominal pain, no nausea or vomiting, no changes in urination or bowel movements, no numbness or tingling, no extremity pain, no skin rashes or lesions. Patient complaining of generalized shaking, wobbly vision, and some gait disturbance. - Related Data Home Medications Medication Instructions Recorded Confirmed Arginine [l-Arginine] 500 mg PO DAILY 01/23/22 01/23/22 Ashwagandha Root Extract 500 mg PO DAILY 01/23/22 01/23/22 [Ashwagandha] Dextroamphetamine/Amphetamine 20 mg PO DAILY PRN 01/23/22 01/23/22 [Adderall Xr 20 mg Capsule] Ergocalciferol (Vitamin D2) 1,250 mcg PO TH 01/23/22 01/23/22 [Drisdol (50,000 Iu)] Fenugreek 1 tab PO DAILY 01/23/22 01/23/22 Glucosam/Ja-Msm1/C/[place]/Bosw 1 tab PO DAILY 01/23/22 01/23/22 [Glucosamine-Chondroitin Tablet] ISOtretinoin [Accutane] 20 mg PO HS 01/23/22 01/23/22 L-Tyrosine 1 tab PO DAILY 01/23/22 01/23/22 Mucuna Pruriens 1 tab PO DAILY 01/23/22 01/23/22 Vitamin A 2,400 mcg PO DAILY 01/23/22 01/23/22 Vitamin B Complex 1 cap PO DAILY 01/23/22 01/23/22 Zinc 50 mg PO DAILY 01/23/22 01/23/22 methylPREDNISolone [Medrol Dose See Taper PO DIRECTED 01/23/22 01/23/22 Pack] Previous Rx's Medication Instructions Recorded Potassium Chloride ER [K-Dur 20] 20 meq PO DAILY #5 tab 01/23/22 hydrOXYzine HCL 25 mg PO Q8HR PRN #20 tab 01/23/22 Allergies Allergy/AdvReac Type Severity Reaction Status Date / Time amoxicillin Allergy Unknown Verified 01/23/22 21:11 Childhood Review of Systems ROS Statement: Those systems with pertinent positive or pertinent negative responses have been documented in the HPI. ROS Other: All systems not noted in ROS Statement are negative. Past Medical History Past Medical History: Hypertension Additional Past Medical History / Comment(s): Irregular Heart beat History of Any Multi-Drug Resistant Organisms: None Reported Past Surgical History: Orthopedic Surgery Additional Past Surgical History / Comment(s): knee x4 Past Anesthesia/Blood Transfusion Reactions: No Reported Reaction Past Psychological History: Anxiety Smoking Status: Current every day smoker Past Alcohol Use History: Daily Past Drug Use History: None Reported - Past Family History Mother Family Medical History: No Reported History General Exam - General Exam Comments Initial Comments: Cranial nerves II through XII grossly intact. Patient does have notable nystagmus. Patient also has a generalized tremor which is bilateral. Patient tremor is worse with finger to nose. Seems to be worse with any intention. Does have trouble with Romberg but is able to stand. Limitations: no limitations General appearance: in distress Head exam: Present: atraumatic, normocephalic, normal inspection Eye exam: Present: PERRL, EOMI, nystagmus. Absent: scleral icterus, conjunctival injection, periorbital swelling, periorbital tenderness ENT exam: Present: normal exam, normal oropharynx, mucous membranes dry, mucous membranes moist, normal external ear exam Neck exam: Present: normal inspection, full ROM. Absent: tenderness, meningismus, lymphadenopathy Respiratory exam: Present: normal lung sounds bilaterally. Absent: respiratory distress, wheezes, rales, rhonchi, stridor, chest wall tenderness, accessory muscle use Cardiovascular Exam: Present: regular rate, normal rhythm, normal heart sounds. Absent: systolic murmur, diastolic murmur, rubs, gallop, clicks GI/Abdominal exam: Present: soft, normal bowel sounds. Absent: distended, tenderness, guarding, rebound, rigid Extremities exam: Present: normal inspection, full ROM, normal capillary refill. Absent: tenderness, pedal edema, joint swelling, calf tenderness Back exam: Present: normal inspection Neurological exam: Present: alert, oriented X3, CN II-XII intact Expanded Patient oriented to: Present: person, place, time Speech: Present: fluid speech Cranial nerves: EOM's Intact: Normal, Gag Reflex: Normal, Tongue Deviation: Normal, Nystagmus: Abnormal Right, Facial Sensation: Normal, Facial Palsy with Forehead Movement: Normal, Facial Palsy without Forehead Movement: Normal Cerebellar function: Finger to Nose: Normal (Has notable increased Tremor with this maneuver), Heel to [place]: Normal, Romberg: Normal (Can complete with difficulty) Upper motor neuron: Oscar Neglect: Normal, Pronator Drift: Normal Sensory exam: Upper Extremity Light Touch: Normal, Upper Extremity Pin Prick: Normal, Lower Extremity Light Touch: Normal, Lower Extremity Pin Prick: Normal Motor strength exam: RUE: 5, LUE: 5, RLE: 5, LLE: 5 Eye Response: (4) open spontaneously Motor Response: (6) obeys commands Verbal Response: (5) oriented Jo Ann Total: 15 Psychiatric exam: Present: normal affect, normal mood Skin exam: Present: warm, dry, intact, normal color. Absent: rash Course Vital Signs 01/23/22 01/23/22 01/23/22 19:59 21:02 23:42 Temperature 98.7 F Pulse Rate 78 72 88 Respiratory 18 16 16 Rate Blood Pressure 139/82 136/89 118/88 O2 Sat by Pulse 99 98 98 Oximetry - Reevaluation(s) Reevaluation #1: 01/23/22 21:47 Medical record is reviewed symptoms are somewhat improved. Patient still has what he is describing is wobbly vision Patient is informed of results and questions answered Patient in no distress Reevaluation #2: 01/23/22 23:35 Patient improved greatly after diazepam. Patient was reevaluated prior to discharge is neurologically intact. Alert and oriented 4. Cranial nerves II through XII intact, no focal neurologic deficits. Symptomology improved. - Consultations Consultation #1: Case discussed with Dr. Sinclair from [facility]ist [facility]. He had subsequent admission. We'll consult neurology. Medical Decision Making - Medical Decision Making Note that this patient started taking Accutane 6 days ago for acne. An abundance of [id number] herbal remedies. Patient denies alcohol or drug abuse. The case was discussed in detail with ED attending physician. Presentation, findings, treatment plan discussed in detail. Despite the patient's essentially benign workup. We decided to place the patient under observation for neurological evaluation. Patient's symptoms certainly could be related to the new onset of Accutane treatment. Patient stat es he previously has had some panic attacks. Patient also had a stressful day today as his significant other found out she was . I'm going to all of the patient's medications as he is on many [id number] herbal and holistic substances which could be contributing to the patient's symptomatology. We'll hold Accutane and Adderall as well. This patient was seen and evaluated by the hospitalist physician, Dr. Sinclair. Patient was essentially asymptomatic by the time he saw him. He believes the patient's symptomology is attributable to a panic attack/anxiety. She is comfo rtable with the patient going home. He will add a consult note. Going to have the patient use hydroxyzine when necessary for anxiety. We'll have the patient hold Accutane until he can follow-up with his regular doctor. He is to call the morning for the first available appointment. Patient was told to return to the ER for any signs or symptoms worsen. Told to return immediately if any other problems arise. All questions answered. Treatment plan discussed. Patient in agreement Every effort has been made to ensure accuracy of this dictation. However, due to the limitations of electronic medical records and dictation devices, errors in charting still occur. - Lab Data Result diagrams: 01/23/22 20:20 01/23/22 20:20 Lab Results 01/23/22 01/23/22 01/23/22 Range/Units 20:20 20:20 20:20 WBC 7.6 (3.8-10.6) k/uL RBC 4.23 L (4.30-5.90) m/uL Hgb 13.0 (13.0-17.5) gm/dL Hct 38.5 L (39.0-53.0) % MCV 90.9 (80.0-100.0) fL MCH 30.8 (25.0-35.0) pg MCHC 33.8 (31.0-37.0) g/dL RDW 12.5 (11.5-15.5) % Plt Count 197 (150-450) k/uL MPV 7.9 Neutrophils % 45 % Lymphocytes % 47 % Monocytes % 5 % Eosinophils % 0 % Basophils % 0 % Neutrophils # 3.4 (1.3-7.7) k/uL Lymphocytes # 3.6 (1.0-4.8) k/uL Monocytes # 0.4 (0-1.0) k/uL Eosinophils # 0.0 (0-0.7) k/uL Basophils # 0.0 (0-0.2) k/uL PT 11.0 (9.0-12.0) sec INR 1.0 (<1.2) APTT 30.9 H (22.0-30.0) sec Sodium 140 (137-145) mmol/L Potassium 3.4 L (3.5-5.1) mmol/L Chloride 99 (98-107) mmol/L Carbon Dioxide 29 (22-30) mmol/L Anion Gap 12 mmol/L BUN 14 (9-20) mg/dL Creatinine 0.98 (0.66-1.25) mg/dL Est GFR (CKD-EPI)AfAm >90 (>60 ml/min/1.73 sqM) Est GFR (CKD-EPI)NonAf >90 (>60 ml/min/1.73 sqM) Glucose 96 (74-99) mg/dL Calcium 8.7 (8.4-10.2) mg/dL Phosphorus 4.4 (2.5-4.5) mg/dL Magnesium 1.7 (1.6-2.3) mg/dL Total Bilirubin 0.5 (0.2-1.3) mg/dL AST 20 (17-59) U/L ALT 19 (4-49) U/L Alkaline Phosphatase 53 (38-126) U/L Ammonia (<30) umol/L Troponin I (0.000-0.034) ng/mL Total Protein 7.1 (6.3-8.2) g/dL Albumin 4.9 (3.5-5.0) g/dL Lipase 62 (23-300) U/L TSH 2.660 (0.465-4.680) mIU/L Urine Color Urine Appearance (Clear) Urine pH (5.0-8.0) Ur Specific [place] (1.001-1.035) Urine Protein (Negative) Urine Glucose (UA) (Negative) Urine Ketones (Negative) Urine Blood (Negative) Urine Nitrite (Negative) Urine Bilirubin (Negative) Urine Urobilinogen (<2.0) mg/dL Ur Leukocyte Esterase (Negative) Salicylates <1.0 mg/dL Urine Opiates Screen (NotDetected) Ur Oxycodone Screen (NotDetected) Urine Methadone Screen (NotDetected) Ur Propoxyphene Screen (NotDetected) Acetaminophen <10.0 ug/mL Ur Barbiturates Screen (NotDetected) U Tricyclic Antidepress (NotDetected) Ur Phencyclidine Scrn (NotDetected) Ur Amphetamines Screen (NotDetected) U Methamphetamines Scrn (NotDetected) U Benzodiazepines Scrn (NotDetected) Urine Cocaine Screen (NotDetected) U Marijuana (THC) Screen (NotDetected) Serum Alcohol <10 mg/dL Coronavirus (PCR) (Not Detectd) 01/23/22 01/23/22 01/23/22 Range/Units 20:20 20:20 20:20 WBC (3.8-10.6) k/uL RBC (4.30-5.90) m/uL Hgb (13.0-17.5) gm/dL Hct (39.0-53.0) % MCV (80.0-100.0) fL MCH (25.0-35.0) pg MCHC (31.0-37.0) g/dL RDW (11.5-15.5) % Plt Count (150-450) k/uL MPV Neutrophils % % Lymphocytes % % Monocytes % % Eosinophils % % Basophils % % Neutrophils # (1.3-7.7) k/uL Lymphocytes # (1.0-4.8) k/uL Monocytes # (0-1.0) k/uL Eosinophils # (0-0.7) k/uL Basophils # (0-0.2) k/uL PT (9.0-12.0) sec INR (<1.2) APTT (22.0-30.0) sec Sodium (137-145) mmol/L Potassium (3.5-5.1) mmol/L Chloride (98-107) mmol/L Carbon Dioxide (22-30) mmol/L Anion Gap mmol/L BUN (9-20) mg/dL Creatinine (0.66-1.25) mg/dL Est GFR (CKD-EPI)AfAm (>60 ml/min/1.73 sqM) Est GFR (CKD-EPI)NonAf (>60 ml/min/1.73 sqM) Glucose (74-99) mg/dL Calcium (8.4-10.2) mg/dL Phosphorus (2.5-4.5) mg/dL Magnesium (1.6-2.3) mg/dL Total Bilirubin (0.2-1.3) mg/dL AST (17-59) U/L ALT (4-49) U/L Alkaline Phosphatase (38-126) U/L Ammonia <9 (<30) umol/L Troponin I <0.012 (0.000-0.034) ng/mL Total Protein (6.3-8.2) g/dL Albumin (3.5-5.0) g/dL Lipase (23-300) U/L TSH (0.465-4.680) mIU/L Urine Color Urine Appearance (Clear) Urine pH (5.0-8.0) Ur Specific [place] (1.001-1.035) Urine Protein (Negative) Urine Glucose (UA) (Negative) Urine Ketones (Negative) Urine Blood (Negative) Urine Nitrite (Negative) Urine Bilirubin (Negative) Urine Urobilinogen (<2.0) mg/dL Ur Leukocyte Esterase (Negative) Salicylates mg/dL Urine Opiates Screen (NotDetected) Ur Oxycodone Screen (NotDetected) Urine Methadone Screen (NotDetected) Ur Propoxyphene Screen (NotDetected) Acetaminophen ug/mL Ur Barbiturates Screen (NotDetected) U Tricyclic Antidepress (NotDetected) Ur Phencyclidine Scrn (NotDetected) Ur Amphetamines Screen (NotDetected) U Methamphetamines Scrn (NotDetected) U Benzodiazepines Scrn (NotDetected) Urine Cocaine Screen (NotDetected) U Marijuana (THC) Screen (NotDetected) Serum Alcohol mg/dL Coronavirus (PCR) Not Detected (Not Detectd) 01/23/22 01/23/22 Range/Units 20:50 20:50 WBC (3.8-10.6) k/uL RBC (4.30-5.90) m/uL Hgb (13.0-17.5) gm/dL Hct (39.0-53.0) % MCV (80.0-100.0) fL MCH (25.0-35.0) pg MCHC (31.0-37.0) g/dL RDW (11.5-15.5) % Plt Count (150-450) k/uL MPV Neutrophils % % Lymphocytes % % Monocytes % % Eosinophils % % Basophils % % Neutrophils # (1.3-7.7) k/uL Lymphocytes # (1.0-4.8) k/uL Monocytes # (0-1.0) k/uL Eosinophils # (0-0.7) k/uL Basophils # (0-0.2) k/uL PT (9.0-12.0) sec INR (<1.2) APTT (22.0-30.0) sec Sodium (137-145) mmol/L Potassium (3.5-5.1) mmol/L Chloride (98-107) mmol/L Carbon Dioxide (22-30) mmol/L Anion Gap mmol/L BUN (9-20) mg/dL Creatinine (0.66-1.25) mg/dL Est GFR (CKD-EPI)AfAm (>60 ml/min/1.73 sqM) Est GFR (CKD-EPI)NonAf (>60 ml/min/1.73 sqM) Glucose (74-99) mg/dL Calcium (8.4-10.2) mg/dL Phosphorus (2.5-4.5) mg/dL Magnesium (1.6-2.3) mg/dL Total Bilirubin (0.2-1.3) mg/dL AST (17-59) U/L ALT (4-49) U/L Alkaline Phosphatase (38-126) U/L Ammonia (<30) umol/L Troponin I (0.000-0.034) ng/mL Total Protein (6.3-8.2) g/dL Albumin (3.5-5.0) g/dL Lipase (23-300) U/L TSH (0.465-4.680) mIU/L Urine Color Light Yellow Urine Appearance Clear (Clear) Urine pH 6.5 (5.0-8.0) Ur Specific [place] 1.004 (1.001-1.035) Urine Protein Negative (Negative) Urine Glucose (UA) Negative (Negative) Urine Ketones Negative (Negative) Urine Blood Negative (Negative) Urine Nitrite Negative (Negative) Urine Bilirubin Negative (Negative) Urine Urobilinogen <2.0 (<2.0) mg/dL Ur Leukocyte Esterase Negative (Negative) Salicylates mg/dL Urine Opiates Screen Not Detected (NotDetected) Ur Oxycodone Screen Not Detected (NotDetected) Urine Methadone Screen Not Detected (NotDetected) Ur Propoxyphene Screen Not Detected (NotDetected) Acetaminophen ug/mL Ur Barbiturates Screen Not Detected (NotDetected) U Tricyclic Antidepress Not Detected (NotDetected) Ur Phencyclidine Scrn Not Detected (NotDetected) Ur Amphetamines Screen Not Detected (NotDetected) U Methamphetamines Scrn Not Detected (NotDetected) U Benzodiazepines Scrn Not Detected (NotDetected) Urine Cocaine Screen Not Detected (NotDetected) U Marijuana (THC) Screen Not Detected (NotDetected) Serum Alcohol mg/dL Coronavirus (PCR) (Not Detectd) Disposition Clinical Impression: Tremor, Hypokalemia, Anxiety, Panic attack Narrative: Bilateral vision disturbance. Possible medication reaction Disposition: HOME SELF-CARE Condition: Good Is patient prescribed a controlled substance at d/c from ED?: No Time of Disposition: 21:49 Decision to Admit Reason: Admit from EC Decision Date: 01/23/22
[2022-01-23] MEDS ORDERED: diazePAM 5 MG TAB PO STA (20:26)
--- NOTE | 2022-01-23 20:36 | XR ---
EXAMINATION TYPE: XR chest 1V portable DATE OF EXAM: 01/23/2022 COMPARISON: 01/07/2018 HISTORY: Chest pain TECHNIQUE: Single view FINDINGS: Heart and mediastinum are normal. Lungs are clear. Diaphragm is normal. Bony thorax is inta ct. There is old healed right-sided rib fracture. There is old healed left clavicle fracture. IMPRESSION: No active cardiopulmonary disease. No change.
[2022-01-23 20:39] LABS: Basophils % (A) 0 %; Eosinophils % (A) 0 %; HCT 38.5 % (39.0-53.0); Lymphocytes # (A) 3.6 k/uL (1.0-4.8); Lymphocytes % (A) 47 %; MCH 30.8 pg (25.0-35.0); MCHC 33.8 g/dL (31.0-37.0); MCV 90.9 fL (80.0-100.0); Mean Platelet Volume 7.9; Monocytes # (A) 0.4 k/uL (0-1.0); Monocytes % (A) 5 %; Neutrophils # (A) 3.4 k/uL (1.3-7.7); Neutrophils % (A) 45 %; Platelet Count 197 k/uL (150-450); RBC 4.23 m/uL (4.30-5.90); RDW 12.5 % (11.5-15.5); WBC 7.6 k/uL (3.8-10.6)
[2022-01-23 20:50] LABS: Partial Thromboplastin Time 30.9 sec (22.0-30.0)
--- NOTE | 2022-01-23 20:57 | CT ---
EXAMINATION TYPE: CT brain wo con DATE OF EXAM: 01/23/2022 COMPARISON: None HISTORY: Shakiness and unsteady gait. CT DLP: 1099.4 mGycm Automated exposure control for dose reduction was used. Ventricles have normal size. There is no mass effect or midline shift. No sign of intracranial hemorr ethan. The calvarium is intact. There is normal aeration of the mastoid sinuses. IMPRESSION: Negative unenhanced head CT scan
[2022-01-23 20:59] LABS: ALT 19 U/L (4-49); AST 20 U/L (17-59); Acetaminophen <10.0 ug/mL; African American GFR (CKD) >90 (>60 ml/min/1.73 sqM); Albumin 4.9 g/dL (3.5-5.0); Alcohol <10 mg/dL; Alkaline Phosphatase 53 U/L (38-126); Anion Gap 12 mmol/L; Blood Urea Nitrogen 14 mg/dL (9-20); Calcium 8.7 mg/dL (8.4-10.2); Carbon Dioxide 29 mmol/L (22-30); Chloride 99 mmol/L (98-107); Glucose 96 mg/dL (74-99); Lipase 62 U/L (23-300); Magnesium 1.7 mg/dL (1.6-2.3); Non-African American GFR(CKD) >90 (>60 ml/min/1.73 sqM); Phosphorus 4.4 mg/dL (2.5-4.5); Potassium 3.4 mmol/L (3.5-5.1); Salicylate <1.0 mg/dL; Sodium 140 mmol/L (137-145); Total Bilirubin 0.5 mg/dL (0.2-1.3); Total Protein 7.1 g/dL (6.3-8.2)
[2022-01-23 21:06] LABS: Appearance,Urine Clear (Clear); Bilirubin,Urine Negative (Negative); Blood,Urine Negative (Negative); Color,Urine Light Yellow; Glucose,Urine (UA) Negative (Negative); Ketones,Urine Negative (Negative); Leukocyte Esterase,Urine Negative (Negative); Nitrite,Urine Negative (Negative); PH, Urine 6.5 (5.0-8.0); Protein,Urine Negative (Negative); Specific Gravity,Urine 1.004 (1.001-1.035); Urobilinogen,Urine <2.0 mg/dL (<2.0)
[2022-01-23 21:31] LABS: Amphetamine Screen,Urine Not Detected (NotDetected); Barbiturate Screen,Urine Not Detected (NotDetected); Benzodiazepines Screen,Urine Not Detected (NotDetected); Cocaine Screen,Urine Not Detected (NotDetected); Methadone Screen, Urine Not Detected (NotDetected); Opiate Screen,Urine Not Detected (NotDetected); Oxycodone Screen, Urine Not Detected (NotDetected); Phencyclidine Screen,Urine Not Detected (NotDetected); Tricyclic Antidepressant,Urine Not Detected (NotDetected); Urn Cannabinoid Scrn Not Detected (NotDetected)
[2022-01-23] MEDS ORDERED: MAGNESIUM SULFATE-D5W PMX 1 GM in DEXTROSE/WATER 1 100ML.BAG IVPB ONE (21:37)
[2022-01-23] MEDS ORDERED: POTASSIUM CHLORIDE ER 20 MEQ TAB.ER PO STA (21:37)
[2022-01-23] MEDS ORDERED: ACETAMINOPHEN TAB 325 MG TAB PO PRN (22:06)
[2022-01-23] MEDS ORDERED: LORazepam 0.5 MG TAB PO PRN (22:06)
[2022-01-23] MEDS ORDERED: NALOXONE 0.4 MG/ML 1 ML VIAL IV PRN (22:06)
[2022-01-23] MEDS ORDERED: ONDANSETRON 4 MG/2 ML VIAL IVP PRN (22:06)
[2022-01-23] MEDS ORDERED: SODIUM CHLORIDE 0.9% 1,000 ML IV SCH (22:15)
[2022-01-23 23:42] VITALS: RESP 16
[2022-01-23 23:43] VITALS: BP 118/88; PULSE 88
--- NOTE | 2022-01-24 00:07 | P.CONS ---
History of Present Illness - Reason for Consult Consult date: 01/23/22 - History of Present Illness The patient is a 36-year-old male with a PMH of anxiety and panic disorder who presents to the emergency room with multiple complaints. The patient reports that his symptoms started roughly 2 days ago shortly after finding out that his was with her first child. He reports that since then, he has had episodes typically lasting for a few minutes where he begins shaking uncontro llably, develops blurred vision, chest tightness, shortness of breath, and head pressure. He reports that the episodes have been increasing in frequency and that he had his worst episode thus far earlier today shortly after he had to announce to his cheondoism friends as well as their families that they were expecting a child. He received Valium in the emergency room, and at time of the interview reported feeling significantly better, almost back to his baseline from 3 days ago. He denies any history of coronary artery disease or history of stroke. He denied experiencing weakness, numbness, or tingling. Also denied expecting facial asymmetry or speech impairment. He does not smoke but does have a history of alcohol abuse, although he quit several years ago and continues to be sober. He reports that his symptoms are very much in line to when he had his panic attacks in his late teenage years. Review of systems: Pertinent positives and negatives as discussed in HPI, a complete review of systems was performed and all other systems are negative. Physical examination: General: non toxic, no distress, appears at stated age, normal weight Derm: no unusual rashes/lesions, warm Head: atraumatic, normocephalic, symmetric Eyes: EOMI, no lid lag, anicteric sclera, pupils equal round reactive to light ENT: Nose and ears atraumatic Neck: No cervical lymphadenopathy, trachea midline, supple Mouth: no lip lesion, mucus membranes moist Cardiovascular: S1S2 reg, no murmur, positive dorsalis pedis pulse bilateral, no edema Lungs: CTA bilateral, no rhonchi, no rales, no accessory muscle use Abdominal: soft, nontender to palpation, no guarding Ext: muscle strength 5 out of 5 in all 4 extremities grossly, no gross muscle atrophy, no contractures, Neuro: CN II-XI grossly intact, no gross focal neuro deficits Psych: Alert, oriented, appropriate affect Assessment/plan Chest tightness, blurred vision, tremors -Suspicious of anxiety with panic disorder -Discussed in detail with the patient and his at the bedside -Counseled the patient that if his symptoms recur, that he return to the emergency room immediately -Advised the patient to see his PCP as soon as possible and to see a psychiatrist if his symptoms persist -Low suspicion for CVA at this time Past Medical History Past Medical History: Hypertension Additional Past Medical History / Comment(s): Irregular Heart beat History of Any Multi-Drug Resistant Organisms: None Reported Past Surgical History: Orthopedic Surgery Additional Past Surgical History / Comment(s): knee x4 Past Anesthesia/Blood Transfusion Reactions: No Reported Reaction Past Psychological History: Anxiety Smoking Status: Current every day smoker Past Alcohol Use History: Daily Past Drug Use History: None Reported - Past Family History Mother Additional Family Medical History / Comment(s): Maternal uncle had PA in his late 50s Medications and Allergies Home Medications Medication Instructions Recorded Confirmed Type Arginine [l-Arginine] 500 mg PO DAILY 01/23/22 01/23/22 History Ashwagandha Root Extract 500 mg PO DAILY 01/23/22 01/23/22 History [Ashwagandha] Dextroamphetamine/Amphetamine 20 mg PO DAILY PRN 01/23/22 01/23/22 History [Adderall Xr 20 mg Capsule] Ergocalciferol (Vitamin D2) 1,250 mcg PO TH 01/23/22 01/23/22 History [Drisdol (50,000 Iu)] Fenugreek 1 tab PO DAILY 01/23/22 01/23/22 History Glucosam/Ja-Msm1/C/[place]/Bosw 1 tab PO DAILY 01/23/22 01/23/22 History [Glucosamine-Chondroitin Tablet] ISOtretinoin [Accutane] 20 mg PO HS 01/23/22 01/23/22 History L-Tyrosine 1 tab PO DAILY 01/23/22 01/23/22 History Mucuna Pruriens 1 tab PO DAILY 01/23/22 01/23/22 History Potassium Chloride ER [K-Dur 20] 20 meq PO DAILY #5 tab 01/23/22 Rx Vitamin A 2,400 mcg PO DAILY 01/23/22 01/23/22 History Vitamin B Complex 1 cap PO DAILY 01/23/22 01/23/22 History Zinc 50 mg PO DAILY 01/23/22 01/23/22 History hydrOXYzine HCL 25 mg PO Q8HR PRN #20 tab 01/23/22 Rx methylPREDNISolone [Medrol Dose See Taper PO DIRECTED 01/23/22 01/23/22 History Pack] Allergies Allergy/AdvReac Type Severity Reaction Status Date / Time amoxicillin Allergy Unknown Verified 01/23/22 21:11 Childhood Physical Exam Vitals: Vital Signs Temp Pulse Resp BP Pulse Ox 01/23/22 23:42 88 16 118/88 98 01/23/22 21:02 72 16 136/89 98 01/23/22 19:59 98.7 F 78 18 139/82 99 Intake and Output 01/23/22 01/23/22 01/24/22 14:59 22:59 06:59 Other: Weight 79.379 kg Results CBC & Chem 7: 01/23/22 20:20 01/23/22 20:20 Labs: Abnormal Lab Results - Last 24 Hours (Table) 01/23/22 01/23/22 01/23/22 Range/Units 20:20 20:20 20:20 RBC 4.23 L (4.30-5.90) m/uL Hct 38.5 L (39.0-53.0) % APTT 30.9 H (22.0-30.0) sec Potassium 3.4 L (3.5-5.1) mmol/L
== END 2022-01-23 23:49 | disposition home or self-care (01) ==
LOC: EC 19:41 → 6NMEDSUR 21:41
PROVIDERS: ADMIT Internal Medicine; ATTEND Internal Medicine
DX: R07.89 Other chest pain (principal); E87.6 Hypokalemia; H53.8 Other visual disturbances; R06.02 Shortness of breath; R25.1 Tremor, unspecified; F41.0 Panic disorder [episodic paroxysmal anxiety]; I10 Essential (primary) hypertension; I49.9 Cardiac arrhythmia, unspecified; R26.9 Unspecified abnormalities of gait and mobility; F41.9 Anxiety disorder, unspecified; L70.9 Acne, unspecified; F10.21 Alcohol dependence, in remission; F17.200 Nicotine dependence, unspecified, uncomplicated; Z20.822 Contact with and (suspected) exposure to COVID-19; Z79.899 Other long term (current) drug therapy; Z88.0 Allergy status to penicillin; Z98.890 Other specified postprocedural states; Z82.49 Family history of ischemic heart disease and other diseases of the circulatory system
CPT/HCPCS: 99285; 36415; 93005; 80053; 84443; 82140; 83690; 83735; 84100; 84484; 85025; 85610; 85730; 81003; 80306; 80143; 80320; 87635; 80179; 71045; 70450; G0378; J3475

== ENCOUNTER → 2023-02-15 | Outpatient (CLI) | payer BC ==
--- NOTE | 2023-02-15 16:44 | US ---
EXAMINATION TYPE: US pelvic limited DATE OF EXAM: 02/15/2023 COMPARISON: CT 06/28/2018 CLINICAL INDICATION: Male, 37 years old with history of R19.09 OTHER INTRA-ABDOMINAL AND PELVIC SWELL ING, MASS AND L; Male pelvis, pt states palpable lumps within bilateral groins, denies pain TECHNIQUE: Transabdominal (TA). Transabdominal sonographic images of the pelvis were acquired. Findings: Bladder appears wnl, bilateral jets visualized Bilateral groin scanned in area of pt's palpable lumps- within right and left groins there are mult iple small (chain of) lymph nodes, largest within right groin= 0.6 cm and largest within left groin= 0.6 cm IMPRESSION: There are bilateral lymph nodes in the area of growing palpable abnormality. The lymph nodes do not a ppear enlarged.
== END | disposition home or self-care (01) ==
LOC: RADUSWWP 15:00
PROVIDERS: ATTEND Family Medicine
DX: R59.0 Localized enlarged lymph nodes (principal); R19.09 Other intra-abdominal and pelvic swelling, mass and lump
CPT/HCPCS: 76857

== ENCOUNTER → 2023-08-23 | Outpatient (CLI) | payer BC ==
--- NOTE | 2023-08-23 16:05 | XR ---
EXAMINATION TYPE: XR chest 2V DATE OF EXAM: 08/23/2023 COMPARISON: 01/23/2022, 01/07/2018. TECHNIQUE: PA and lateral views submitted. HISTORY: Hemoptysis FINDINGS: The lungs are clear and there is no pneumothorax, pleural effusion, or focal pneumonia. Heart size normal and no overt failure. Osseous structures intact. Increased attenuation in the right paratrache al region. IMPRESSION: 1. No acute process. 2. Increased attenuation in the right paratracheal region. Most likely represents ectatic vasculature appears but is increased in prominence relative to 2018. Recommend CT scan to exclude underlying bassam nopathy or mass.
== END | disposition home or self-care (01) ==
LOC: RADXRMAIN 15:48
PROVIDERS: ATTEND Nurse Practitioner Family
DX: R04.2 Hemoptysis (principal)
CPT/HCPCS: 71046

== ENCOUNTER 2023-09-01 11:13 | Emergency (ER) | payer BC ==
--- NOTE | 2023-09-01 12:22 | ED ---
General Adult HPI - General Source: patient, RN notes reviewed Mode of arrival: ambulatory Limitations: no limitations <Myron Bejarano - Last Filed: 09/01/23 12:21> - General Source: patient, family, RN notes reviewed Mode of arrival: ambulatory Limitations: no limitations <Nati Russell - Last Filed: 09/01/23 16:55> - General Chief complaint: Recheck/Abnormal Lab/Rx Stated complaint: Spitting up blood Time Seen by Provider: 09/01/23 12:21 - History of Present Illness Initial comments: 37-year-old male presents emergency department complaint of spitting, coughing up blood. Patient states that it happened last week and went to his PCP order lab work, x-ray. He was found to have a lung nodule is scheduled for CAT scan. He states it happened again he states it does happen after he eats but denies any vomiting. Patient states that he years ago used to be a heavy drinker and vomited blood but states he has no lower chest or abdominal pain. (Myron Bejarano) Patient is a 37-year-old male presented to the ER with a chief complaint of coughing up blood. Patient states this happened a week ago and was seen at PCP and labs were obtained. Chest x-ray was also obtained which patient reports with there was an abnormality. He states this morning it happened again. Patient does state he ate a peanut butter and jelly sandwich prior to. Patient denies any current abdominal pain, chest pain, shortness of breath, fevers, chills, night sweats. Patient states his bowel movements have been normal. Patient is an everyday smoker. Patient does have a history of alcohol use. He denies any dizziness or lightheadedness, blood thinner use or urinary symptoms. (Nati Russell) - Related Data Home Medications Medication Instructions Recorded Confirmed Arginine [l-Arginine] 500 mg PO DAILY 01/23/22 01/23/22 Ashwagandha Root Extract 500 mg PO DAILY 01/23/22 01/23/22 [Ashwagandha] Dextroamphetamine/Amphetamine 20 mg PO DAILY PRN 01/23/22 01/23/22 [Adderall Xr 20 mg Capsule] Ergocalciferol (Vitamin D2) 1,250 mcg PO TH 01/23/22 01/23/22 [Drisdol (50,000 Iu)] Fenugreek 1 tab PO DAILY 01/23/22 01/23/22 Glucosam/Ja-Msm1/C/Kenyon/Bosw 1 tab PO DAILY 01/23/22 01/23/22 [Glucosamine-Chondroitin Tablet] ISOtretinoin [Accutane] 20 mg PO HS 01/23/22 01/23/22 L-Tyrosine 1 tab PO DAILY 01/23/22 01/23/22 Mucuna Pruriens 1 tab PO DAILY 01/23/22 01/23/22 Vitamin A 2,400 mcg PO DAILY 01/23/22 01/23/22 Vitamin B Complex 1 cap PO DAILY 01/23/22 01/23/22 Zinc 50 mg PO DAILY 01/23/22 01/23/22 methylPREDNISolone [Medrol Dose See Taper PO DIRECTED 01/23/22 01/23/22 Pack] Previous Rx's Medication Instructions Recorded Potassium Chloride ER [K-Dur 20] 20 meq PO DAILY #5 tab 01/23/22 hydrOXYzine HCL 25 mg PO Q8HR PRN #20 tab 01/23/22 Allergies Allergy/AdvReac Type Severity Reaction Status Date / Time amoxicillin Allergy Unknown Verified 09/01/23 11:41 Childhood Review of Systems ROS Other: All systems not noted in ROS Statement are negative. <Myron Bejarano - Last Filed: 09/01/23 12:21> ROS Other: All systems not noted in ROS Statement are negative. <Nati Russell - Last Filed: 09/01/23 16:55> ROS Statement: Those systems with pertinent positive or pertinent negative responses have been documented in the HPI. Past Medical History Past Medical History: Hypertension Additional Past Medical History / Comment(s): Irregular Heart beat History of Any Multi-Drug Resistant Organisms: None Reported Past Surgical History: Orthopedic Surgery Additional Past Surgical History / Comment(s): knee x4 Past Anesthesia/Blood Transfusion Reactions: No Reported Reaction Past Psychological History: Anxiety Smoking Status: Current every day smoker Past Alcohol Use History: None Reported Past Drug Use History: None Reported - Past Family History Mother Family Medical History: No Reported History Additional Family Medical History / Comment(s): Maternal uncle had [place] in his late 50s <Myron Bejarano - Last Filed: 09/01/23 12:21> General Exam Limitations: no limitations <Myron Bejarano - Last Filed: 09/01/23 12:21> General appearance: alert, in no apparent distress Head exam: Present: atraumatic, normocephalic, normal inspection ENT exam: Present: normal exam, normal oropharynx, mucous membranes moist Respiratory exam: Present: normal lung sounds bilaterally. Absent: respiratory distress, wheezes, rales, rhonchi, stridor Cardiovascular Exam: Present: regular rate, normal rhythm, normal heart sounds. Absent: systolic murmur, diastolic murmur, rubs, gallop, clicks GI/Abdominal exam: Present: soft, normal bowel sounds. Absent: distended, tenderness, guarding, rebound, rigid Neurological exam: Present: alert, oriented X3, CN II-XII intact Psychiatric exam: Present: normal affect, normal mood Skin exam: Present: warm, dry, intact, normal color. Absent: rash <Nati Russell - Last Filed: 09/01/23 16:55> - General Exam Comments Initial Comments: Visual Physical Exam Vital signs reviewed General: Well-appearing, nontoxic, no acute distress. Head: Normocephalic, atraumatic Eyes: PERRLA, EOMI ENT: Airway patent Chest: Nonlabored breathing Skin: No visual rash, normal skin tone Neuro: Alert and oriented 3 Musculoskeletal: No gross abnormalities (Myron Bejarano) Course Vital Signs 09/01/23 09/01/23 11:40 15:14 Temperature 98.2 F 98.1 F Pulse Rate 97 86 Respiratory 20 18 Rate Blood Pressure 136/70 137/87 O2 Sat by Pulse 99 98 Oximetry Medical Decision Making <Myron Bejarano - Last Filed: 09/01/23 12:21> - Lab Data Result diagrams: 09/01/23 12:32 09/01/23 12:32 - Radiology Data Radiology results: report reviewed, image reviewed <Nati Russell - Last Filed: 09/01/23 16:55> - Medical Decision Making I completed the quick note portion of this chart signed Myron Bejarano PA-C (Myron Bejarano) Was pt. sent in by a medical professional or institution (, [facility], [employer], urgent care, hospital, or fci...) When possible be specific @ -No Did you speak to anyone other than the patient for history (EMS, parent, family, police, friend...)? What history was obtained from this source @ -No Did you review nursing and triage notes (agree or disagree)? Why? @ -I reviewed and agree with nursing and triage notes Were old charts reviewed (outside hosp., previous admission, EMS record, old EKG, old radiological studies, urgent care reports/EKG's, fci records)? Report findings @ -No old charts were reviewed Differential Diagnosis (chest pain, altered mental status, abdominal pain women, abdominal pain men, vaginal bleeding, weakness, fever, dyspnea, syncope, headache, dizziness, GI bleed, back pain, seizure, CVA, palpatations, mental health, musculoskeletal)? @ -Differential GI Bleed: Esophageal varices, aortoenteric fistula, Corinne- Dunbar, gastritis, peptic ulcer disease, diverticulosis, inflammatory bowel disease, hemorrhoids, fissure, colitis, malignancy, Meckels diverticulum, this is not meant to be an all-inclusive list. EKG interpreted by me (3pts min.). @ -None X-rays interpreted by me (1pt min.). @ -None done CT interpreted by me (1pt min.). @ -Chest CTA shows a 6mm pulmonary lung nodule in RLL. Groundglass densities in the right lung base posteriorly and medially. Negative for pulmonary embolism. U/S interpreted by me (1pt. min.). @ -None done What testing was considered but not performed or refused? (CT, X-rays, U/S, labs)? Why? @ -None What meds were considered but not given or refused? Why? @ -None Did you discuss the management of the patient with other professionals (professionals i.e. , PA, [employer], lab, RT, psych nurse, child welfare social worker, sonography technologist, teacher, radio division officer, caseworker protective services)? Give summary @ -No Was smoking cessation discussed for >3mins.? @ -I discussed smoking cessation for greater than 3 minutes. The risk of smoking were discussed with the patient including but not limited to risks of cancer, stroke, coronary artery disease and COPD. Also discussed with patient were multiple methods of quitting smoking. Lastly we discussed the financial cost of smoking. Was critical care preformed (if so, how long)? @ -No Were there social determinants of health that impacted care today? How? (Homelessness, low income, unemployed, alcoholism, drug addiction, transportation, low edu. Level, literacy, decrease access to med. care, longterm, rehab)? @ -Alcoholism Was there de-escalation of care discussed even if they declined (Discuss DNR or withdrawal of care, Hospice)? DNR status @ -No What co-morbidities impacted this encounter? (DM, HTN, Smoking, COPD, CAD, Cancer, CVA, ARF, Chemo, Hep., AIDS, mental health diagnosis, sleep apnea, morbid obesity)? @ -Smoking Was patient admitted / discharged? Hospital course, mention meds given and route, prescriptions, significant lab abnormalities, going to OR and other pertinent info. @ -Discharge. patient abdullaih 37 year old male presenting to the er with a chief complaint of coughing/spitting up blood. Vitals stable. History and physical exam were completed. Patient without signs of acute distress. Labs obtained in the ER unremarkable. CTA chest performed significnat for a 6mm pulmonary lung nodule in RLL. Groundglass densities in the right lung base posteriorly and medially. Negative for pulmonary embolism. CT findings can be correlated to recent pneumonia diagnosis. I discussed lab and imaging findings with patient. All questions answered. I discussed smoking cessation for greater than 3 minutes. The risk of smoking were discussed with the patient including but not limited to risks of cancer, stroke, coronary artery disease and COPD. Also discussed with patient were multiple methods of quitting smoking. Lastly we discussed the financial cost of smoking. I advised him to follow-up with PCP for monitoring of pulmonary nodule. Also, advised GI follow-up for EGD with Dr. Benito. Return parameters were discussed. Patient will be discharged in stable condition with follow-up to PCP. Patient expressed understanding and agreement with care plan. Undiagnosed new problem with uncertain prognosis? @ -No Drug Therapy requiring intensive monitoring for toxicity (Heparin, Nitro, Insulin, Cardizem)? @ -No Were any procedures done? @ -No Diagnosis/symptom? @ -Hemoptysis/pulmonary nodule Acute, or Chronic, or Acute on Chronic? @ -Acute Uncomplicated (without systemic symptoms) or Complicated (systemic symptoms)? @ -Uncomplicated Side effects of treatment? @ -No Exacerbation, Progression, or Severe Exacerbation? @ -No Poses a threat to life or bodily function? How? (Chest pain, [place], [place], pneumonia, PE, COPD, DKA, ARF, appy, cholecystitis, CVA, Diverticulitis, Homicidal, Suicidal, threat to staff... and all critical care pts) @ -No (Nati Russell) - Lab Data Lab Results 09/01/23 09/01/23 09/01/23 Range/Units 12:32 12:32 12:32 WBC 6.0 (3.8-10.6) k/uL RBC 4.81 (4.30-5.90) m/uL Hgb 15.6 (13.0-17.5) gm/dL Hct 45.6 (39.0-53.0) % MCV 94.7 (80.0-100.0) fL MCH 32.5 (25.0-35.0) pg MCHC 34.3 (31.0-37.0) g/dL RDW 14.5 (11.5-15.5) % Plt Count 185 (150-450) k/uL MPV 8.1 Neutrophils % 71 % Lymphocytes % 20 % Monocytes % 6 % Eosinophils % 1 % Basophils % 0 % Neutrophils # 4.3 (1.3-7.7) k/uL Lymphocytes # 1.2 (1.0-4.8) k/uL Monocytes # 0.4 (0-1.0) k/uL Eosinophils # 0.0 (0-0.7) k/uL Basophils # 0.0 (0-0.2) k/uL PT 11.0 (10.0-12.5) sec INR 1.0 (<1.2) APTT 41.0 H (22.0-30.0) sec Sodium 142 (137-145) mmol/L Potassium 3.6 (3.5-5.1) mmol/L Chloride 104 (98-107) mmol/L Carbon Dioxide 29 (22-30) mmol/L Anion Gap 9 mmol/L BUN 13 (9-20) mg/dL Creatinine 0.75 (0.66-1.25) mg/dL Est GFR (CKD-EPI)AfAm >90 (>60 ml/min/1.73 sqM) Est GFR (CKD-EPI)NonAf >90 (>60 ml/min/1.73 sqM) Glucose 107 H (74-99) mg/dL Calcium 8.5 (8.4-10.2) mg/dL Total Bilirubin 0.8 (0.2-1.3) mg/dL AST 25 (17-59) U/L ALT 22 (4-49) U/L Alkaline Phosphatase 71 (38-126) U/L Total Protein 7.2 (6.3-8.2) g/dL Albumin 4.7 (3.5-5.0) g/dL Disposition <Myron Bejarano - Last Filed: 09/01/23 12:21> Is patient prescribed a controlled substance at d/c from ED?: No Time of Disposition: 15:03 <Nati Russell - Last Filed: 09/01/23 16:55> Clinical Impression: Pulmonary nodule, Hemoptysis Disposition: HOME SELF-CARE Condition: Stable Additional Instructions: Please follow-up with PCP in the next 1 to 2 days. Follow-up with Dr. Benito for upper endoscopy. Please return to the ER for any new or worsening symptoms. Referrals: Edie Murray MD [Primary Care Provider] - 1-2 days Kaye Benito MD [STAFF PHYSICIAN] - 1-2 days
[2023-09-01 13:14] LABS: Basophils % (A) 0 %; Eosinophils % (A) 1 %; HCT 45.6 % (39.0-53.0); HGB 15.6 gm/dL (13.0-17.5); Lymphocytes # (A) 1.2 k/uL (1.0-4.8); Lymphocytes % (A) 20 %; MCH 32.5 pg (25.0-35.0); MCHC 34.3 g/dL (31.0-37.0); MCV 94.7 fL (80.0-100.0); Mean Platelet Volume 8.1; Monocytes # (A) 0.4 k/uL (0-1.0); Monocytes % (A) 6 %; Neutrophils # (A) 4.3 k/uL (1.3-7.7); Neutrophils % (A) 71 %; Platelet Count 185 k/uL (150-450); RBC 4.81 m/uL (4.30-5.90); RDW 14.5 % (11.5-15.5)
[2023-09-01 13:30] LABS: ALT 22 U/L (4-49); AST 25 U/L (17-59); African American GFR (CKD) >90 (>60 ml/min/1.73 sqM); Albumin 4.7 g/dL (3.5-5.0); Alkaline Phosphatase 71 U/L (38-126); Anion Gap 9 mmol/L; Blood Urea Nitrogen 13 mg/dL (9-20); Calcium 8.5 mg/dL (8.4-10.2); Carbon Dioxide 29 mmol/L (22-30); Chloride 104 mmol/L (98-107); Glucose 107 mg/dL (74-99); Non-African American GFR(CKD) >90 (>60 ml/min/1.73 sqM); Potassium 3.6 mmol/L (3.5-5.1); Sodium 142 mmol/L (137-145); Total Bilirubin 0.8 mg/dL (0.2-1.3); Total Protein 7.2 g/dL (6.3-8.2)
--- NOTE | 2023-09-01 14:38 | CT ---
EXAMINATION TYPE: CT chest angio for PE DATE OF EXAM: 09/01/2023 COMPARISON: None HISTORY: Hemoptysis, lung nodule, shortness of breath CT DLP: 346.6 mGycm Automated exposure control for dose reduction was used. CONTRAST: CT Chest for pulmonary embolism performed with with IV Contrast, patient injected with 77ml mL of Iso hi 370. 3-D postprocessing was performed. FINDINGS: There is a 6 mm nodule in the right lung base posteriorly. There is subtle scattered groundglass densities in the right lower lobe posteriorly and medially whic h is a nonspecific finding and could represent an acute inflammatory/infectious process. There is no mediastinal, hilar or axillary adenopathy. The great vessels chest are normal. There is no filling defect within the pulmonary artery or segment al branches to suggest pulmonary embolism. There is no pleural effusion or pneumothorax. There is a small diverticulum of the upper esophagus. No focal osseous lesions are seen. Limited scans of the upper abdomen reveals no gross abnormality. IMPRESSION: 1. Right lower lobe pulmonary nodule approximately 6 mm in size. Follow-up CT chest is recommended in 6 months. Lung RADS category 3. 2. Subtle groundglass densities in the right lung base posteriorly and medially. Could represent an a cute infectious or inflammatory process although the finding is nonspecific. 3. No pulmonary embolism. Follow-up recommendations for incidental pulmonary nodules are per [employer] or [employer].
[2023-09-01 15:18] VITALS: BP 137/87; PULSE 86; RESP 18; TEMP 98.1
== END 2023-09-01 15:20 | disposition home or self-care (01) ==
LOC: EC 11:13
DX: R04.2 Hemoptysis (principal); R91.1 Solitary pulmonary nodule; I10 Essential (primary) hypertension; F17.210 Nicotine dependence, cigarettes, uncomplicated; Z79.899 Other long term (current) drug therapy; Z88.0 Allergy status to penicillin
CPT/HCPCS: 36415; 80053; 85025; 85610; 85730; 71275; 99406; 99284; Q9967

== ENCOUNTER → 2023-10-18 | Outpatient (CLI) | payer OTHER ==
--- NOTE | 2023-10-18 12:49 | XR ---
EXAMINATION TYPE: XR ankle complete RT DATE OF EXAM: 10/18/2023 12:29 PM CLINICAL INDICATION:Male, 38 years old with history of S93.401A Sprain right ankle; [facility] COMPARISON: None TECHNIQUE: XR ankle complete RT; ankle is imaged in frontal, lateral and oblique projections. FINDINGS: There is no evidence of acute osseous pathology. The joint spaces are well-preserved without evidenc e of subluxation or dislocation. Kager's fat pad is intact. Mild soft tissue swelling around the ankl e. No radiopaque foreign bodies are identified. Calcaneal plantar spurring. IMPRESSION: 1. No evidence of acute fracture. 2. Subcutaneous swelling around the ankle likely secondary to underlying soft tissue injury.
== END | disposition home or self-care (01) ==
LOC: RADXRMAIN 12:17
PROVIDERS: ATTEND Emergency Medicine
DX: S93.401A Sprain of unspecified ligament of right ankle, initial encounter (principal)

== ENCOUNTER 2023-11-14 16:15 | Emergency (ER) | payer BC ==
[2023-11-14 16:31] VITALS: RESP 18; TEMP 98.3
--- NOTE | 2023-11-14 16:32 | ED ---
General Adult HPI - General Chief complaint: Recheck/Abnormal Lab/Rx Stated complaint: Lump on stomach Time Seen by Provider: 11/14/23 16:30 Source: patient, RN notes reviewed Mode of arrival: ambulatory Limitations: no limitations - History of Present Illness Initial comments: 38-year-old male presents to with chief complaint of an area of perimbilical swelling and neck lymph node enlargement over the last few months. Patient denies pain of the abdomen or neck, dyspnea, diarrhea, dyschezia, hematochezia, nausea, vomiting, night sweats, or unintended weight loss. Patient states that the area in his abdomen enlarges while he bears down and with increases in intraabdominal pressure, denies erythmea or redness. Patient states that he underwent an EGD a few months ago due to a few episodes of hematemesis where he was diagnosed with erosive esophagitis and started on Protonix and has not had symptoms of hememesis since. States he used to be an alcoholic 6 years ago but has stopped drinking. Denies runny nose, cough, congestion, headaches. Denies previous abdominal surguries. - Related Data Home Medications Medication Instructions Recorded Confirmed Arginine [l-Arginine] 500 mg PO DAILY 01/23/22 01/23/22 Ashwagandha Root Extract 500 mg PO DAILY 01/23/22 01/23/22 [Ashwagandha] Dextroamphetamine/Amphetamine 20 mg PO DAILY PRN 01/23/22 01/23/22 [Adderall Xr 20 mg Capsule] Ergocalciferol (Vitamin D2) 1,250 mcg PO TH 01/23/22 01/23/22 [Drisdol (50,000 Iu)] Fenugreek 1 tab PO DAILY 01/23/22 01/23/22 Glucosam/Ja-Msm1/C/[place]/Bosw 1 tab PO DAILY 01/23/22 01/23/22 [Glucosamine-Chondroitin Tablet] ISOtretinoin [Accutane] 20 mg PO HS 01/23/22 01/23/22 L-Tyrosine 1 tab PO DAILY 01/23/22 01/23/22 Mucuna Pruriens 1 tab PO DAILY 01/23/22 01/23/22 Vitamin A 2,400 mcg PO DAILY 01/23/22 01/23/22 Vitamin B Complex 1 cap PO DAILY 01/23/22 01/23/22 Zinc 50 mg PO DAILY 01/23/22 01/23/22 methylPREDNISolone [Medrol Dose See Taper PO DIRECTED 01/23/22 01/23/22 Pack] Previous Rx's Medication Instructions Recorded Potassium Chloride ER [K-Dur 20] 20 meq PO DAILY #5 tab 01/23/22 hydrOXYzine HCL 25 mg PO Q8HR PRN #20 tab 01/23/22 Allergies Allergy/AdvReac Type Severity Reaction Status Date / Time amoxicillin Allergy Unknown Verified 11/14/23 16:27 Childhood Review of Systems ROS Statement: Those systems with pertinent positive or pertinent negative responses have been documented in the HPI. ROS Other: All systems not noted in ROS Statement are negative. Past Medical History Past Medical History: Hypertension Additional Past Medical History / Comment(s): Irregular Heart beat History of Any Multi-Drug Resistant Organisms: None Reported Past Surgical History: Orthopedic Surgery Additional Past Surgical History / Comment(s): knee x4, endoscopy 2023 Past Anesthesia/Blood Transfusion Reactions: No Reported Reaction Past Psychological History: Anxiety Smoking Status: Former smoker Past Alcohol Use History: None Reported Past Drug Use History: None Reported - Past Family History Mother Family Medical History: No Reported History Additional Family Medical History / Comment(s): Maternal uncle had PR in his late 50s General Exam Limitations: no limitations General appearance: alert, in no apparent distress Head exam: Present: atraumatic, normocephalic, normal inspection Eye exam: Present: normal appearance, PERRL, EOMI. Absent: scleral icterus, conjunctival injection, periorbital swelling ENT exam: Present: normal exam, mucous membranes moist Neck exam: Present: normal inspection, lymphadenopathy (anterior cervical and tonsillar). Absent: tenderness, meningismus, thyromegaly Respiratory exam: Present: normal lung sounds bilaterally. Absent: respiratory distress, wheezes, rales, rhonchi, stridor Cardiovascular Exam: Present: regular rate, normal rhythm, normal heart sounds. Absent: systolic murmur, diastolic murmur, rubs, gallop, clicks GI/Abdominal exam: Present: soft, normal bowel sounds, other (1 cm area of fluctuance noted at the proximal periumbilical region exacerbated with increase in intraabdominal pressure). Absent: distended, tenderness, guarding, rebound, rigid Extremities exam: Present: normal inspection, full ROM, normal capillary refill. Absent: tenderness, pedal edema, joint swelling, calf tenderness Back exam: Present: normal inspection Neurological exam: Present: alert, oriented X3, CN II-XII intact Psychiatric exam: Present: normal affect, normal mood Skin exam: Present: warm, dry, intact, normal color. Absent: rash Course Vital Signs 11/14/23 11/14/23 16:22 18:27 Temperature 98.3 F Pulse Rate 94 85 Respiratory 18 18 Rate Blood Pressure 151/78 123/87 O2 Sat by Pulse 100 99 Oximetry Medical Decision Making - Medical Decision Making Was pt. sent in by a medical professional or institution (, PA, CORPORATE TRUST OFFICER, urgent care, hospital, or detention...) When possible be specific @ -No Did you speak to anyone other than the patient for history (EMS, parent, family, police, friend...)? What history was obtained from this source @ -No Did you review nursing and triage notes (agree or disagree)? Why? @ -I reviewed and agree with nursing and triage notes Were old charts reviewed (outside hosp., previous admission, EMS record, old EKG, old radiological studies, urgent care reports/EKG's, detention records)? Report findings @ -No old charts were reviewed Differential Diagnosis (chest pain, altered mental status, abdominal pain women, abdominal pain men, vaginal bleeding, weakness, fever, dyspnea, syncope, headache, dizziness, GI bleed, back pain, seizure, CVA, palpatations, mental health, musculoskeletal)? @ -Differential Abdominal Pain Men: Appendicitis, cholecystitis, diverticulosis, ischemic bowel, pancreatitis, hepatitis, UTI, gastroenteritis, AAA, incarcerated hernia, bowel obstruction, constipation, inflammatory bowel, hepatitis, peptic ulcer disease, splenic infarction, perforated viscus, testicular torsion, this is not meant to be an all-inclusive list EKG interpreted by me (3pts min.). @ -None X-rays interpreted by me (1pt min.). @ -None done CT interpreted by me (1pt min.). @ -None done U/S interpreted by me (1pt. min.). @ -Abdominal ultrasound with no acute findings at this time What testing was considered but not performed or refused? (CT, X-rays, U/S, labs)? Why? @ -None What meds were considered but not given or refused? Why? @ -None Did you discuss the management of the patient with other professionals (professionals i.e. DrSamantha, PA, CORPORATE TRUST OFFICER, lab, RT, psych nurse, dialysis social worker, coating and embossing unit operator, teacher, property disposal officer, major case detective)? Give summary @ -No Was smoking cessation discussed for >3mins.? @ -No Was critical care preformed (if so, how long)? @ -No Were there social determinants of health that impacted care today? How? (Homelessness, low income, unemployed, alcoholism, drug addiction, transportation, low edu. Level, literacy, decrease access to med. care, assisted, rehab)? @ -No Was there de-escalation of care discussed even if they declined (Discuss DNR or withdrawal of care, Hospice)? DNR status @ -No What co-morbidities impacted this encounter? (DM, HTN, Smoking, COPD, CAD, Can cer, CVA, ARF, Chemo, Hep., AIDS, mental health diagnosis, sleep apnea, morbid obesity)? @ -None Was patient admitted / discharged? Hospital course, mention meds given and route, prescriptions, significant lab abnormalities, going to OR and other pertinent info. @ -38-year-old male with chief complaint of lump in periumbilical region and enlarged LNs of neck. Patient's examination remarkable for a 1 cm area of fluctuance in the proximal periumbilical region that is palpable with increasing intra-abdominal pressure and while patient sitting Tylenol area is not palpated while the patient is in supine position. Additionally palpation of the anterior cervical lymph nodes and tonsils nose revealed lymphadenopathy, patient denies any pain in either of these findings or constitutional symptoms. Patient laboratory results reviewed in addition to ultrasound of mass, CBC unremarkable for signs of infection and within normal limits, ultrasound with no acute findings. At this time patient symptoms are likely secondary to a ventral wall hernia. Lymphadenopathy not likely infectious in nature due to patient not experiencing symptoms of fever, fatigue, shortness of breath, cough, congestion. Symptoms likely secondary to previous viral infection with continued swelling of LNs. I discussed this findings with the patient. Discussed strict return parameters, patient is stable for discharge at this time, follow up with PCP within the next [address] Andrews Undiagnosed new problem with uncertain prognosis? @ -No Drug Therapy requiring intensive monitoring for toxicity (Heparin, Nitro, Insulin, Cardizem)? @ -No Were any procedures done? @ -No Diagnosis/symptom? @ -ventral wall hernia Acute, or Chronic, or Acute on Chronic? @ -acute Uncomplicated (without systemic symptoms) or Complicated (systemic symptoms)? @ -uncomplicated Side effects of treatment? @ -No Exacerbation, Progression, or Severe Exacerbation? @ -No Poses a threat to life or bodily function? How? (Chest pain, USA, PR, pneumonia, PE, COPD, DKA, ARF, appy, cholecystitis, CVA, Diverticulitis, Homicidal, Suicidal, threat to staff... and all critical care pts) @ -No - Lab Data Result diagrams: 11/14/23 16:59 11/14/23 16:59 Lab Results 11/14/23 11/14/23 Range/Units 16:59 16:59 WBC 5.1 (3.8-10.6) k/uL RBC 4.20 L (4.30-5.90) m/uL Hgb 12.9 L (13.0-17.5) gm/dL Hct 38.2 L (39.0-53.0) % MCV 91.0 (80.0-100.0) fL MCH 30.7 (25.0-35.0) pg MCHC 33.7 (31.0-37.0) g/dL RDW 12.7 (11.5-15.5) % Plt Count 186 (150-450) k/uL MPV 7.8 Neutrophils % 56 % Lymphocytes % 34 % Monocytes % 7 % Eosinophils % 0 % Basophils % 0 % Neutrophils # 2.8 (1.3-7.7) k/uL Lymphocytes # 1.7 (1.0-4.8) k/uL Monocytes # 0.3 (0-1.0) k/uL Eosinophils # 0.0 (0-0.7) k/uL Basophils # 0.0 (0-0.2) k/uL Sodium 142 (137-145) mmol/L Potassium 3.7 (3.5-5.1) mmol/L Chloride 103 (98-107) mmol/L Carbon Dioxide 30 (22-30) mmol/L Anion Gap 9 mmol/L BUN 19 (9-20) mg/dL Creatinine 0.92 (0.66-1.25) mg/dL Est GFR (CKD-EPI)AfAm >90 (>60 ml/min/1.73 sqM) Est GFR (CKD-EPI)NonAf >90 (>60 ml/min/1.73 sqM) Glucose 99 (74-99) mg/dL Calcium 8.8 (8.4-10.2) mg/dL Total Bilirubin 0.6 (0.2-1.3) mg/dL AST 29 (17-59) U/L ALT 36 (4-49) U/L Alkaline Phosphatase 71 (38-126) U/L C-Reactive Protein <0.5 (<1.0) mg/dL Total Protein 6.4 (6.3-8.2) g/dL Albumin 4.2 (3.5-5.0) g/dL Amylase 46 (30-110) U/L Lipase 54 (23-300) U/L Disposition Clinical Impression: Ventral hernia without obstruction or gangrene Narrative: Please return to the Emergency Department if symptoms worsen or any other concerns. Disposition: HOME SELF-CARE Condition: Good Instructions (If sedation given, give patient instructions): Ventral Hernia (ED) Is patient prescribed a controlled substance at d/c from ED?: No Referrals: Edie Murray MD [Primary Care Provider] - 1-2 days Time of Disposition: 18:20
[2023-11-14 17:14] LABS: Basophils % (A) 0 %; Eosinophils % (A) 0 %; HCT 38.2 % (39.0-53.0); HGB 12.9 gm/dL (13.0-17.5); Lymphocytes # (A) 1.7 k/uL (1.0-4.8); Lymphocytes % (A) 34 %; MCH 30.7 pg (25.0-35.0); MCHC 33.7 g/dL (31.0-37.0); Mean Platelet Volume 7.8; Monocytes # (A) 0.3 k/uL (0-1.0); Monocytes % (A) 7 %; Neutrophils # (A) 2.8 k/uL (1.3-7.7); Neutrophils % (A) 56 %; Platelet Count 186 k/uL (150-450); RDW 12.7 % (11.5-15.5); WBC 5.1 k/uL (3.8-10.6)
[2023-11-14 17:47] LABS: ALT 36 U/L (4-49); AST 29 U/L (17-59); African American GFR (CKD) >90 (>60 ml/min/1.73 sqM); Albumin 4.2 g/dL (3.5-5.0); Alkaline Phosphatase 71 U/L (38-126); Amylase 46 U/L (30-110); Anion Gap 9 mmol/L; Blood Urea Nitrogen 19 mg/dL (9-20); Calcium 8.8 mg/dL (8.4-10.2); Carbon Dioxide 30 mmol/L (22-30); Chloride 103 mmol/L (98-107); Glucose 99 mg/dL (74-99); Lipase 54 U/L (23-300); Non-African American GFR(CKD) >90 (>60 ml/min/1.73 sqM); Potassium 3.7 mmol/L (3.5-5.1); Sodium 142 mmol/L (137-145); Total Bilirubin 0.6 mg/dL (0.2-1.3); Total Protein 6.4 g/dL (6.3-8.2)
[2023-11-14 17:50] LABS: C Reactive Protein <0.5 mg/dL (<1.0)
--- NOTE | 2023-11-14 17:56 | US ---
EXAMINATION TYPE: US abdomen limited DATE OF EXAM: 11/14/2023 COMPARISON: NONE CLINICAL INDICATION: Male, 38 years old with history of periumbilical fluctuant area 1 cm, non-raise d/ten; Lump on belly button for 2-3 months. Not tender Assess for hernia at location of: Umbilical region No discrete abnormality found in area of lump IMPRESSION: No abnormality seen. Correlate clinically. Real-time scanning was performed by the [employer] product consultant utilizing Valsalva and additional dynamic maneuve rs to assess for hernia. Images of the contralateral side were also acquired for direct comparison.
[2023-11-14 18:52] VITALS: BP 123/87; PULSE 85
[2023-11-15 05:02] LABS: Erythrocyte Sedimentation Rate <1 mm/Hr (0-15)
== END 2023-11-14 18:28 | disposition home or self-care (01) ==
LOC: EC 16:15
DX: K43.9 Ventral hernia without obstruction or gangrene (principal); Z87.891 Personal history of nicotine dependence; Z88.0 Allergy status to penicillin
CPT/HCPCS: 36415; 76705; 80053; 82150; 83690; 85025; 85652; 86140; 99284